=== PATIENT | female | born 1940 | race Caucasian/White ===

== ENCOUNTER 2018-12-01 08:28 | Inpatient (IN) | payer MEDICARE ==
[2018-12-01] MEDS ORDERED: Rocephin 1000 MG INJ IM STA (08:37)
[2018-12-01] MEDS ORDERED: Sodium Chloride 0.9% 1000 ML 1,000 ML IV SCH (08:45)
[2018-12-01] MEDS ORDERED: MORPHINE SULFATE 2 MG INJ IV ONE (08:49)
[2018-12-01] MEDS ORDERED: MORPHINE SULFATE 2 MG INJ ONE (08:56)
[2018-12-01 09:02] LABS: BASOPHIL % 0.1 % (0.0-0.4); Basophil (Absolute #) 0.01 (0-0.4); Eosinophil % 0.1 % (0.00-5.0); Eosinophil (Absolute #) 0.01 (0-0.5); Granulocyte Absolute (ANC) 6.63 (1.4-6.9); Granulocytes % 71.3 % (36.0-66.0); Hemoglobin 13.5 gm/dl (12.0-16.0); Lymphocyte (Absolute #) 1.25 (1.0-4.6); Lymphocytes % 13.5 % (24.0-44.0); Mean Cell Volume 94.2 fl (78-100); Mean Corpuscular Hemoglobin 30.3 pg (26-32); Mean Corpuscular Hgb Concent. 32.1 g/dl (32-36); Mean Platelet Volume 11.7 fl (6-9.5); Monocyte (Absolute #) 1.39 (0.0-1.3); Platelet Count 144 K/mm3 (150-450); Red Blood Count 4.46 M/mm3 (4.1-5.4); Red Cell Distribution Width 13.7 % (11.5-14.0); White Blood Count 9.3 K/mm3 (4.0-10.5)
--- NOTE | 2018-12-01 09:03 | ERPHSYRPT ---
- History of Present Illness Time Seen by Provider: 12/01/18 08:59 Source: patient, EMS Exam Limitations: no limitations Patient Subjective Stated Complaint: PT states "I started to have numbness in my toes a couple of days ago and now my legs are so swollen I can barely walk. [facility] went [facility] and they did not give me any medicine." Triage Nursing Assessment: Pt alert and oriented X 3, skin pwd. PT arrived via ambulance, scat 4, placed in room 4. Pt lower extremeties swollen, non pitting edema, right leg red, left leg no redness noted. Physician History: 78 years old female patient came to ER states "I started to have numbness in my toes a couple of days ago and now my legs are so swollen I can barely walk. [facility] and they did not give me any medicine." Lower Extremities Pain: leg: bilateral Modifying Factors: Improves With: nothing Associated Symptoms: none Allergies/Adverse Reactions: No Known Drug Allergies Allergy (Unverified 12/01/18 08:40) Home Medications: Aspirin [Aspirin EC] 81 mg PO DAILY 12/01/18 [History] Hx Tetanus, Diphtheria Vaccination/Date Given: No Hx Influenza Vaccination/Date Given: No Hx Pneumococcal Vaccination/Date Given: No Immunizations Up to Date: Yes - Review of Systems Constitutional: No Fever, No Chills Eyes: No Symptoms Ears, Nose, & Throat: No Symptoms Respiratory: No Cough, No Dyspnea Cardiac: No Chest Pain, No Edema, No Syncope Abdominal/Gastrointestinal: No Abdominal Pain, No Nausea, No Vomiting, No Diarrhea Genitourinary Symptoms: No Dysuria Musculoskeletal: Other (bilateral leg swelling up to knees), No Back Pain, No Neck Pain Skin: No Rash Neurological: No Dizziness, No Focal Weakness, No Sensory Changes Psychological: No Symptoms Endocrine: No Symptoms All Other Systems: Reviewed and Negative - Past Medical History Pertinent Past Medical History: Yes Neurological History: No Pertinent History ENT History: No Pertinent History Cardiac History: Other Respiratory History: No Pertinent History Endocrine Medical History: No Pertinent History Musculoskeletal History: No Pertinent History GI Medical History: No Pertinent History History: No Pertinent History Psycho-Social History: No Pertinent History Female Reproductive Disorders: No Pertinent History Other Medical History: mitral valve prolapse - Past Surgical History Past Surgical History: Yes Other Surgical History: tubal ligation. appendectomy - Social History Smoking Status: Never smoker Exposure to second hand smoke: Yes Drug Use: none Patient Lives Alone: No - Female History Hx Now: No - Nursing Vital Signs Nursing Vital Signs: Initial Vital Signs Temperature 98.0 F 12/01/18 08:29 Pulse Rate 84 12/01/18 08:29 Respiratory Rate 22 12/01/18 08:29 Blood Pressure 167/88 12/01/18 08:29 O2 Sat by Pulse Oximetry 98 12/01/18 08:29 Pain Scale Pain Intensity 6 - Physical Exam General Appearance: alert Eyes, Ears, Nose, Throat Exam: moist mucous membranes Neck Exam: non-tender, supple Cardiovascular/Respiratory Exam: chest non-tender, normal breath sounds, regular rate/rhythm, no respiratory distress Gastrointestinal/Abdominal Exam: non-tender, guarding Back Exam: normal inspection, No vertebral tenderness Legs Exam: bilateral leg: soft tissue tenderness, swelling Neuro/Tendon Exam: normal sensation, normal motor functions Mental Status Exam: alert, oriented x 3, cooperative Skin Exam: normal color, warm, dry SpO2 Interpretation: normal SpO2: 98 O2 Delivery: Room Air - Course Nursing assessment & vital signs reviewed: Yes - Radiology Ultrasound Exam Venous Lower Extremity Ultrasound: tele radiology report, Other (no DVT, right popliteal cyst) Ordered Tests: Active Orders 24 hr Category Date Time Status VENOUS BILATERAL EXTREMITY [US] Stat Exams 12/01/18 Ordered BLOOD CULTURE Stat Lab 12/01/18 08:50 Received BMP Stat Lab 12/01/18 08:30 Completed CBC W DIFF Stat Lab 12/01/18 08:30 Completed D-DIMER QUANTITATION Stat Lab 12/01/18 08:30 Completed Lactic Acid Stat Lab 12/01/18 08:37 Completed Medication Summary Generic Name Dose Route Start Last Admin Trade Name Freq PRN Reason Stop Dose Admin Sodium Chloride 1,000 mls @ 50 mls/hr 12/01/18 08:45 12/01/18 08:57 Sodium Chloride 0.9% 1000 Ml IV 12/31/18 08:44 50 mls/hr .Q20H NAKITA Administration Ceftriaxone Sodium/Dextrose 1 g in 50 mls @ 100 mls/hr 12/01/18 09:44 09:48 Rocephin 1 Gm-D5w 50 Ml Bag IV 12/01/18 10:13 100 ml/hr STAT ONE 100 mls/hr Administration Discontinued Medications Generic Name Dose Route Start Last Admin Trade Name Belinda PRN Reason Stop Dose Admin Ceftriaxone Sodium mg 12/01/18 08:37 Rocephin 1000 Mg Inj IM 12/01/18 08:38 STAT STA Ceftriaxone Sodium/Dextrose Confirm 12/01/18 09:46 Rocephin 1 Gm-D5w 50 Ml Bag Administered 12/01/18 09:47 Dose 1 g in 50 mls @ ud IV .STK-MED ONE Morphine Sulfate 2 mg 12/01/18 08:49 12/01/18 08:57 Morphine Sulfate 2 Mg Inj IV 12/01/18 08:50 2 mg STAT ONE Administration Morphine Sulfate Confirm 12/01/18 08:56 Morphine Sulfate 2 Mg Inj Administered 12/01/18 08:57 Dose 2 mg .ROUTE .STK-MED ONE Lab/Rad Data: Laboratory Result Diagrams 12/01/18 08:30 12/01/18 08:30 Laboratory Results 12/01/18 12/01/18 12/01/18 Range/Units 08:37 08:30 08:30 WBC (4.0-10.5) K/mm3 RBC (4.1-5.4) M/mm3 Hgb (12.0-16.0) gm/dl Hct (35-47) % MCV (78-100) fl MCH (26-32) pg MCHC (32-36) g/dl RDW (11.5-14.0) % Plt Count (150-450) K/mm3 MPV (6-9.5) fl Gran % (36.0-66.0) % Eos # (Auto) (0-0.5) Absolute Lymphs (auto) (1.0-4.6) Absolute Monos (auto) (0.0-1.3) Lymphocytes % (24.0-44.0) % Monocytes % (0.0-12.0) % Eosinophils % (0.00-5.0) % Basophils % (0.0-0.4) % Absolute Granulocytes (1.4-6.9) Basophils # (0-0.4) D-Dimer 3934 H* (215-500) ng/mL Sodium 139 (137-145) mmol/L Potassium 4.2 (3.5-5.1) mmol/L Chloride 100 (98-107) mmol/L Carbon Dioxide 29 (22-30) mmol/L Anion Gap 14.8 (5-15) MEQ/L BUN 21 H (7-17) mg/dL Creatinine 0.61 (0.52-1.04) mg/dL Estimated GFR > 60.0 ML/MIN Glucose 111 H (74-106) mg/dL Lactic Acid 1.6 (0.4-2.0) Calcium 9.8 (8.4-10.2) mg/dL Slides for Path Review 12/01/18 Range/Units 08:30 WBC 9.3 (4.0-10.5) K/mm3 RBC 4.46 (4.1-5.4) M/mm3 Hgb 13.5 (12.0-16.0) gm/dl Hct 42.0 (35-47) % MCV 94.2 (78-100) fl MCH 30.3 (26-32) pg MCHC 32.1 (32-36) g/dl RDW 13.7 (11.5-14.0) % Plt Count 144 L (150-450) K/mm3 MPV 11.7 H (6-9.5) fl Gran % 71.3 H (36.0-66.0) % Eos # (Auto) 0.01 (0-0.5) Absolute Lymphs (auto) 1.25 (1.0-4.6) Absolute Monos (auto) 1.39 H (0.0-1.3) Lymphocytes % 13.5 L (24.0-44.0) % Monocytes % 15.0 H (0.0-12.0) % Eosinophils % 0.1 (0.00-5.0) % Basophils % 0.1 (0.0-0.4) % Absolute Granulocytes 6.63 (1.4-6.9) Basophils # 0.01 (0-0.4) D-Dimer (215-500) ng/mL Sodium (137-145) mmol/L Potassium (3.5-5.1) mmol/L Chloride (98-107) mmol/L Carbon Dioxide (22-30) mmol/L Anion Gap (5-15) MEQ/L BUN (7-17) mg/dL Creatinine (0.52-1.04) mg/dL Estimated GFR ML/MIN Glucose (74-106) mg/dL Lactic Acid (0.4-2.0) Calcium (8.4-10.2) mg/dL Slides for Path Review YES - Progress Progress: unchanged, pain not gone completely Discussed with : Other (Dr Dye) Will see patient in: hospital (observation) Counseled pt/family regarding: lab results, diagnosis, need for follow-up, rad results - Departure Departure Disposition: Observation Clinical Impression: Bilateral leg edema Popliteal synovial cyst Qualifiers: Laterality: right Qualified Code(s): M71.21 - Synovial cyst of popliteal space [Anderson], right knee Condition: Stable Critical Care Time: Yes Critical Care Time(excluding separately billable procedures): 30-74 minutes Referrals: SANDY DYE DO [Primary Care Provider] -
[2018-12-01 09:13] LABS: ANION GAP 14.8 MEQ/L (5-15); BLOOD UREA NITROGEN 21 mg/dL (7-17); CHLORIDE 100 mmol/L (98-107); Calcium 9.8 mg/dL (8.4-10.2); Carbon Dioxide 29 mmol/L (22-30); Creatinine 1 0.61 mg/dL (0.52-1.04); Glucose 111 mg/dL (74-106); Potassium 4.2 mmol/L (3.5-5.1); SODIUM 139 mmol/L (137-145)
[2018-12-01 09:29] LABS: Slide Review 1 YES
[2018-12-01] MEDS ORDERED: ROCEPHIN 1 Gm-D5w 50 ml Bag** 1 G/50 ML IVPB IV ONE ×2 (09:44→09:46)
[2018-12-01] MEDS: MORPHINE SULFATE 2 MG INJ IV PRN (12:09)
[2018-12-01] MEDS: ENOXAPARIN SODIUM SQ SCH (12:17)
[2018-12-01] MEDS ORDERED: Norco 10/325 MG Tablet PO PRN (19:01)
[2018-12-01] MEDS: Sodium Chloride 0.9% 1000 ML 1,000 ML IV SCH (20:39)
--- NOTE | 2018-12-01 20:57 | XRAY ---
Indication: Bilateral calf pain. Two-dimensional sonogram and color Doppler imaging of the major venous vessels of the left and right leg was performed. Comparison: None No thrombus seen in the examined deep venous vessels of the left and right leg including greater saphenous vein. Veins demonstrate normal compressibility. Venous waveforms are normal with and without augmentation. Incidental 5.4 cm right knee Anderson's cyst. Impression: Left and right legs negative for DVT. Incidental right knee Anderson's cyst. Comment: Preliminary report was given.
--- NOTE | 2018-12-01 21:00 | XRAY ---
Indication: Elevated d-dimer. Comparison: August 27, 2018. Portable chest again demonstrated COPD. No focal infiltrate, consolidation, or large effusion. Heart is not enlarged for AP portable technique. Bony thorax intact again with mild osteopenia and degenerative changes. Impression: Stable COPD. No new/acute findings.
[2018-12-01 22:30] LABS: Appearance CLEAR (CLEAR); Bilirubin NEGATIVE (NEGATIVE); Blood MODERATE Ery/ul (0-5); Epithelial Cells RARE /HPF (FEW); Glucose NEGATIVE (NEGATIVE); Ketones NEGATIVE (NEGATIVE); Leukocyte Esterase TRACE (NEGATIVE); Mucus SLIGHT /HPF (NEGATIVE); Nitrite NEGATIVE (NEGATIVE); Protein,Urine Dip NEGATIVE (Negative); Urobilinogen 4 mg/dL (0-1)
[2018-12-02] MEDS: TYLENOL EXTRA STRENGTH 500 MG PO PRN (01:04)
[2018-12-02 05:45] LABS: BASOPHIL % 0.3 % (0.0-0.4); Basophil (Absolute #) 0.02 (0-0.4); Eosinophil % 0.6 % (0.00-5.0); Eosinophil (Absolute #) 0.04 (0-0.5); Granulocyte Absolute (ANC) 3.61 (1.4-6.9); Granulocytes % 54.2 % (36.0-66.0); Hematocrit 34.8 % (35-47); Hemoglobin 10.9 gm/dl (12.0-16.0); Lymphocyte (Absolute #) 1.62 (1.0-4.6); Lymphocytes % 24.4 % (24.0-44.0); Mean Cell Volume 95.6 fl (78-100); Mean Corpuscular Hemoglobin 29.9 pg (26-32); Mean Corpuscular Hgb Concent. 31.3 g/dl (32-36); Mean Platelet Volume 11.7 fl (6-9.5); Monocyte (Absolute #) 1.36 (0.0-1.3); Monocytes % 20.5 % (0.0-12.0); Platelet Count 124 K/mm3 (150-450); Red Blood Count 3.64 M/mm3 (4.1-5.4); Red Cell Distribution Width 13.4 % (11.5-14.0); White Blood Count 6.7 K/mm3 (4.0-10.5)
[2018-12-02 06:00] LABS: ALBUMIN 2.9 g/dL (3.5-5.0); ALKALINE PHOSPHATASE 66 U/L (38-126); ANION GAP 9.2 MEQ/L (5-15); BLOOD UREA NITROGEN 15 mg/dL (7-17); CHLORIDE 104 mmol/L (98-107); Calcium 8.7 mg/dL (8.4-10.2); Carbon Dioxide 30 mmol/L (22-30); Creatinine 1 0.65 mg/dL (0.52-1.04); Glucose 99 mg/dL (74-106); Potassium 4.5 mmol/L (3.5-5.1); SGOT/AST 20 U/L (14-36); SGPT/ALT 12 U/L (0-35); SODIUM 138 mmol/L (137-145); Total Protein 5.9 g/dL (6.3-8.2)
[2018-12-02] MEDS ORDERED: PRED-FORTE 1% OPHTHALMIC OP SCH (10:00)
[2018-12-02] MEDS: ECOTRIN 81 MG PO SCH (10:12)
[2018-12-02] MEDS: ENOXAPARIN SODIUM SQ SCH (10:12)
[2018-12-02] MEDS: ROCEPHIN 1 Gm-D5w 50 ml Bag** 1 G/50 ML IVPB IV SCH (10:13)
[2018-12-02] MEDS: PATIENT OWN MEDICATION OP SCH ×8 (10:13→22:48)
--- NOTE | 2018-12-02 11:28 | PCM.NOTE ---
Date and Time: 12/01/18 1500 Subjective Assessment: Patient was admitted through ER with lower extremity swelling bilaterally and right knee pain. Doppler was negative for DVT and CT neg for PE but D dimer is elevated: patient was started on Lovenox. She shows a Bakers cyst in the right knee. She has severe right knee and leg pain when moved 8-9/10 . IV Morphine has brought the pain down to tolerable. Patient does not have CHF. Etiology of this new onset edema is unknowm. Plan to treat for cellulitis and rule out occult abdominal/pelvic malignany. The patient lives with Family in her own home and helps care for her great grand children. She is fairly independent but has support from her children. Daughter is at her bedside and other family members have been visiting throughout the day. She is alert and oriented and comprehends our tratment plan. OBJECTIVE DATA Vital Signs: Vital Signs - 24 hr Temp Pulse Resp BP Pulse Ox 12/02/18 08:00 98.8 F 74 18 116/59 95 12/02/18 04:00 98.8 F 74 18 116/59 95 12/01/18 23:54 100.1 F 88 17 128/59 94 L 12/01/18 20:00 98.5 F 87 17 132/62 95 12/01/18 16:18 100.3 F 91 H 15 121/56 94 L Pain Assessment - Last Documented Pain Intensity 4 Pain Scale Used 0-10 Pain Scale Intake and Output: Intake & Output 11/29/18 11/30/18 12/01/18 12/02/18 11:59 11:59 11:59 11:59 Intake Total 1920 Output Total 925 Balance 995 Weight 57 kg Lab Results: Lab Results-Last 24 Hours 12/01/18 12/02/18 12/02/18 Range/Units 22:22 05:15 05:15 WBC 6.7 (4.0-10.5) K/mm3 RBC 3.64 L (4.1-5.4) M/mm3 Hgb 10.9 L (12.0-16.0) gm/dl Hct 34.8 L (35-47) % MCV 95.6 (78-100) fl MCH 29.9 (26-32) pg MCHC 31.3 L (32-36) g/dl RDW 13.4 (11.5-14.0) % Plt Count 124 L (150-450) K/mm3 MPV 11.7 H (6-9.5) fl Gran % 54.2 (36.0-66.0) % Eos # (Auto) 0.04 (0-0.5) Absolute Lymphs (auto) 1.62 (1.0-4.6) Absolute Monos (auto) 1.36 H (0.0-1.3) Lymphocytes % 24.4 (24.0-44.0) % Monocytes % 20.5 H (0.0-12.0) % Eosinophils % 0.6 (0.00-5.0) % Basophils % 0.3 (0.0-0.4) % Absolute Granulocytes 3.61 (1.4-6.9) Basophils # 0.02 (0-0.4) Sodium 138 (137-145) mmol/L Potassium 4.5 (3.5-5.1) mmol/L Chloride 104 (98-107) mmol/L Carbon Dioxide 30 (22-30) mmol/L Anion Gap 9.2 (5-15) MEQ/L BUN 15 (7-17) mg/dL Creatinine 0.65 (0.52-1.04) mg/dL Estimated GFR > 60.0 ML/MIN Glucose 99 (74-106) mg/dL Calcium 8.7 (8.4-10.2) mg/dL Total Bilirubin 0.60 (0.2-1.3) mg/dL AST 20 (14-36) U/L ALT 12 (0-35) U/L Alkaline Phosphatase 66 (38-126) U/L Serum Total Protein 5.9 L (6.3-8.2) g/dL Albumin 2.9 L (3.5-5.0) g/dL Urine Color YELLOW (YELLOW) Urine Appearance CLEAR (CLEAR) Urine pH 6.0 (5-6) Ur Specific [place] 1.020 (1.005-1.025) Urine Protein NEGATIVE (Negative) Urine Ketones NEGATIVE (NEGATIVE) Urine Blood MODERATE (0-5) Scott/ul Urine Nitrite NEGATIVE (NEGATIVE) Urine Bilirubin NEGATIVE (NEGATIVE) Urine Urobilinogen 4 (0-1) mg/dL Ur Leukocyte Esterase TRACE (NEGATIVE) Urine WBC (Auto) 11-15 (0-5) /HPF Urine RBC (Auto) 6-10 (0-2) /HPF U Epithel Cells (Auto) RARE (FEW) /HPF Urine Bacteria (Auto) NONE (NEGATIVE) /HPF Unidentified Crystals 2-5 (NEGATIVE) /HPF Urine Mucus (Auto) SLIGHT (NEGATIVE) /HPF Urine Culture Reflexed YES (NO) Urine Glucose NEGATIVE (NEGATIVE) mg/dL Radiology Exams: Radiology Procedures Category Date Time Status ABDOMEN AND PELVIS W&WO CONTRA [CT] Routine Exams 12/02/18 Ordered CHEST 1 VIEW (PORTABLE) Stat Exams 12/01/18 10:12 Completed VENOUS BILATERAL EXTREMITY [US] Stat Exams 12/01/18 11:02 Completed Assessment/Plan (1) Cellulitis of right lower leg Current Visit: Yes Status: Acute Assessment & Plan: IV Rocephin was started in ER and will be continued. Code(s): L03.115 - CELLULITIS OF RIGHT LOWER LIMB (2) Bilateral leg edema Current Visit: Yes Status: Acute Assessment & Plan: CT Abd/pelvis ordered for tomorrow Code(s): R60.0 - LOCALIZED EDEMA (3) Popliteal synovial cyst Current Visit: Yes Status: Acute Qualifiers: Laterality: right Qualified Code(s): M71.21 - Synovial cyst of popliteal space [Anderson], right knee Assessment & Plan: will need Ortho consult after acute problems resolved Code(s): M71.20 - SYNOVIAL CYST OF POPLITEAL SPACE [ANDERSON], UNSPECIFIED KNEE
--- NOTE | 2018-12-02 13:31 | PCM.HP ---
History of Present Illness - Chief Complaint Chief Complaint: pain and selling in lower legs,right knee pain Date: 12/02/18 History of Present Illness: is a 78 year old female who presented to the ER with pain and swelling in both lower legs and right knee pain. She denies any injury.She does not have Hx of heart dz.She denies SOB or lung dz. 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.) Ears, Nose, & Throat: No Symptoms Respiratory: No Symptoms Cardiac: No Symptoms Abdominal/Gastrointestinal: No Symptoms Genitourinary Symptoms: Incontinence (stress incontinence) Musculoskeletal: Joint Pain (right knee,NKI) Skin: Other (cut toenails too short and bleed a little prior to onset of cellulitis) Neurological: No Symptoms Psychological: No Symptoms Endocrine: No Symptoms Hematologic/Lymphatic: No Symptoms Immunological/Allergic: No Symptoms Medications & Allergies Home Medications: Home Medication List Aspirin [Aspirin EC] 81 mg PO DAILY 12/01/18 [History Confirmed 12/01/18] Hypromellose [Genteal] 2 drops OP TID 12/01/18 [History Confirmed 12/01/18] Prednisolone Acetate OPHTH [Pred-Forte 1% Ophthalmic] 1 drop OP DAILY 12/15 [History Confirmed 12/01/18] Sodium Chloride [[place]ortes-128] 2 drops OP QID 12/01/18 [History Confirmed 12/01/18] Allergies/Adverse Reactions: Allergies Allergy/AdvReac Type Severity Reaction Status Date / Time No Known Drug Allergies Allergy Unverified 12/01/18 08:40 - Past Medical History Past Medical History: Yes Neurological History: No Pertinent History Cardiac History: No Pertinent History Respiratory History: Pneumonia (age 16 years and July 2018) Endocrine Medical History: No Pertinent History Musculoskelatal History: No Pertinent History GI Medical History: No Pertinent History, Other (negative colonoscopy approx age 68) History: No Pertinent History, Other ( oldest aplastic anemia) Pyscho-Social History: No Pertinent History Reproductive Disorders: No Pertinent History Comment: 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 Dr. Prem Barriga in [place], [place] - Female History Are you now?: No - Past Surgical History Past Surgical History: Yes (cornea transplant) Neuro Surgical History: No Pertinent History Cardiac History: No Pertinent History Respiratory Surgery: No Pertinent History GI Surgical History: Appendectomy Genitourinary Surgical Hx: No Pertinent History Musculskeletal Surgical Hx: No Pertinent History Female Surgical History: Tubal Ligation Other Surgical History: tubal ligation. appendectomy - Social History Smoking Status: Never smoker Exposure to second hand smoke: No Alcohol: None Drug Use: none - Physical Exam Vital Signs: Vital Signs - 24 hr Temp Pulse Resp BP Pulse Ox 12/02/18 11:37 97.6 F 72 17 126/59 95 12/02/18 08:00 98.8 F 74 18 116/59 95 12/02/18 04:00 98.8 F 74 18 116/59 95 12/01/18 23:54 100.1 F 88 17 128/59 94 L 12/01/18 20:00 98.5 F 87 17 132/62 95 12/01/18 16:18 100.3 F 91 H 15 121/56 94 L General Appearance: moderate distress (due to right knee pain), other (patient is chilling ,releived with extra blanket) Neurologic Exam: alert, oriented x 3, cooperative, normal mood/affect, other ( no gross neuro defecits) Ears, Nose, Throat Exam: normal ENT inspection Neck Exam: normal inspection, other (no mass nontender) Respiratory Exam: normal breath sounds, lungs clear Cardiovascular Exam: regular rate/rhythm (no murmur) Gastrointestinal/Abdomen Exam: soft, normal bowel sounds (nontender no organomegally,low suprapubic area "patient feels is swollen " but noo palpable mass) Pelvic Exam: deferred Rectal Exam: deferred Back Exam: other (no CVA tenderness) Extremity Exam: swelling, tenderness (right posterior knee is swollen and tender popliteal fossa. right lower leg and foot generalized edema and redness and tender to touch or move.Left lower leg edema and redness is resolving and is minimally tender. Toenails are deformed some thickening and dried heme third toe along the nail cuticle (patient said she cut it too short last week)) Results - Labs Lab/Micro Results: Lab Results-Last 24 Hours 12/01/18 12/02/18 12/02/18 Range/Units 22:22 05:15 05:15 WBC 6.7 (4.0-10.5) K/mm3 RBC 3.64 L (4.1-5.4) M/mm3 Hgb 10.9 L (12.0-16.0) gm/dl Hct 34.8 L (35-47) % MCV 95.6 (78-100) fl MCH 29.9 (26-32) pg MCHC 31.3 L (32-36) g/dl RDW 13.4 (11.5-14.0) % Plt Count 124 L (150-450) K/mm3 MPV 11.7 H (6-9.5) fl Gran % 54.2 (36.0-66.0) % Eos # (Auto) 0.04 (0-0.5) Absolute Lymphs (auto) 1.62 (1.0-4.6) Absolute Monos (auto) 1.36 H (0.0-1.3) Lymphocytes % 24.4 (24.0-44.0) % Monocytes % 20.5 H (0.0-12.0) % Eosinophils % 0.6 (0.00-5.0) % Basophils % 0.3 (0.0-0.4) % Absolute Granulocytes 3.61 (1.4-6.9) Basophils # 0.02 (0-0.4) Sodium 138 (137-145) mmol/L Potassium 4.5 (3.5-5.1) mmol/L Chloride 104 (98-107) mmol/L Carbon Dioxide 30 (22-30) mmol/L Anion Gap 9.2 (5-15) MEQ/L BUN 15 (7-17) mg/dL Creatinine 0.65 (0.52-1.04) mg/dL Estimated GFR > 60.0 ML/MIN Glucose 99 (74-106) mg/dL Calcium 8.7 (8.4-10.2) mg/dL Total Bilirubin 0.60 (0.2-1.3) mg/dL AST 20 (14-36) U/L ALT 12 (0-35) U/L Alkaline Phosphatase 66 (38-126) U/L Serum Total Protein 5.9 L (6.3-8.2) g/dL Albumin 2.9 L (3.5-5.0) g/dL Urine Color YELLOW (YELLOW) Urine Appearance CLEAR (CLEAR) Urine pH 6.0 (5-6) Ur Specific [place] 1.020 (1.005-1.025) Urine Protein NEGATIVE (Negative) Urine Ketones NEGATIVE (NEGATIVE) Urine Blood MODERATE (0-5) Scott/ul Urine Nitrite NEGATIVE (NEGATIVE) Urine Bilirubin NEGATIVE (NEGATIVE) Urine Urobilinogen 4 (0-1) mg/dL Ur Leukocyte Esterase TRACE (NEGATIVE) Urine WBC (Auto) 11-15 (0-5) /HPF Urine RBC (Auto) 6-10 (0-2) /HPF U Epithel Cells (Auto) RARE (FEW) /HPF Urine Bacteria (Auto) NONE (NEGATIVE) /HPF Unidentified Crystals 2-5 (NEGATIVE) /HPF Urine Mucus (Auto) SLIGHT (NEGATIVE) /HPF Urine Culture Reflexed YES (NO) Urine Glucose NEGATIVE (NEGATIVE) mg/dL Microbiology 12/01/18 22:22 Urine Culture - Preliminary Urine, Void NO GROWTH TO DATE - Radiology Impressions Radiology Exams & Impressions: Radiology Procedures Category Date Time Status ABDOMEN AND PELVIS W&WO CONTRA [CT] Routine Exams 12/02/18 Ordered CHEST 1 VIEW (PORTABLE) Stat Exams 12/01/18 10:12 Completed VENOUS BILATERAL EXTREMITY [US] Stat Exams 12/01/18 11:02 Completed Assessment/Plan (1) Cellulitis of right lower leg Current Visit: Yes Status: Acute Code(s): L03.115 - CELLULITIS OF RIGHT LOWER LIMB (2) Bilateral leg edema Current Visit: Yes Status: Acute Code(s): R60.0 - LOCALIZED EDEMA (3) Popliteal synovial cyst Current Visit: Yes Status: Acute Qualifiers: Laterality: right Qualified Code(s): M71.21 - Synovial cyst of popliteal space [Anderson], right knee Code(s): M71.20 - SYNOVIAL CYST OF POPLITEAL SPACE [ANDERSON], UNSPECIFIED KNEE (4) History of corneal transplant Current Visit: Yes Status: Acute Code(s): Z94.7 - CORNEAL TRANSPLANT STATUS
[2018-12-02] MEDS: MORPHINE SULFATE 2 MG INJ IV PRN (14:46)
[2018-12-03] MEDS: Sodium Chloride 0.9% 1000 ML 1,000 ML IV SCH ×2 (06:19→07:48)
--- NOTE | 2018-12-03 08:53 | XRAY ---
Indication: Groin pain with lymph nodes. Multiple contiguous axial images obtained through the abdomen and pelvis prior to and following 80 cc Isovue 370 contrast only. Gastrografin contrast also used. Comparison: None Lung bases are clear. Heart is not enlarged. Noncontrasted images demonstrates hepatic/splenic calcified granulomas. No pathologic visceral calcifications/calculi. Noncontrasted stomach and bowel loops appear nonobstructed. Minimal sigmoid diverticulosis. No free fluid or free air. Postcontrast images demonstrates normal visceral enhancement and renal excretion. Remaining liver, gallbladder, pancreas, spleen, adrenal glands, kidneys, ureters, bladder, and uterus appear unremarkable. Mild scattered vascular calcifications. No AAA or pathologic retroperitoneal lymphadenopathy. Osseous structures demonstrates mild/moderate multilevel degenerative spondylosis and mild dextroscoliosis centered at L3. Small bilateral inguinal lymph nodes, none pathologically enlarged. No ventral or inguinal hernias. Impression: 1. Evidence for old granulomatous disease. No pathologic visceral calcifications/calculi. 2. Sigmoid diverticulosis without diverticulitis. 3. Remaining CT abdomen/pelvis with and without contrast is negative. CT DI 14.87
[2018-12-03] MEDS: ROCEPHIN 1 Gm-D5w 50 ml Bag** 1 G/50 ML IVPB IV SCH (09:34)
[2018-12-03] MEDS: ENOXAPARIN SODIUM SQ SCH (09:34)
[2018-12-03] MEDS: PATIENT OWN MEDICATION OP SCH ×8 (09:35→22:10)
[2018-12-03] MEDS: ECOTRIN 81 MG PO SCH (09:35)
--- NOTE | 2018-12-03 12:58 | PCM.NOTE ---
Date and Time: 12/03/18 1256 Subjective Assessment: Patient had CTabd and pelvis late yesterday and it was unremarkable/negative .Right leg pain from cellulitis is improving but pain increases with weight bearing. PT walked patient with walker this morning,dependent on the walker probably due mostly to pain.Temp was 99.1this morning,down from 12/01/18 Tmax.= 100.1. New c/o pain right foot at the base of the great toe . Appetite is ok , slept well, no constipation or diarrhea. Labs ordered including uric acid.Exam today edema and redness continues to improve. Continue IV Rocephin and PT. OBJECTIVE DATA Vital Signs: Vital Signs - 24 hr Temp Pulse Resp BP Pulse Ox 12/03/18 12:00 98.2 F 74 18 144/61 99 12/03/18 07:52 98.1 F 77 18 114/56 95 12/03/18 04:00 98.6 F 81 16 127/60 97 12/03/18 00:00 99.1 F 83 16 108/52 96 12/02/18 20:00 98.1 F 76 20 127/59 99 12/02/18 14:56 98.2 F 72 17 151/67 97 Pain Assessment - Last Documented Pain Intensity 5 Pain Scale Used 0-10 Pain Scale Intake and Output: Intake & Output 12/01/18 12/02/18 12/03/18 12/04/18 11:59 11:59 11:59 11:59 Intake Total 1920 1641 Output Total 925 700 Balance 995 941 Weight 57 kg Radiology Exams: Radiology Procedures Category Date Time Status ABDOMEN AND PELVIS W&WO CONTRA [CT] Routine Exams 12/02/18 21:01 Completed Assessment/Plan (1) Cellulitis of right lower leg Current Visit: Yes Status: Acute Code(s): L03.115 - CELLULITIS OF RIGHT LOWER LIMB (2) Bilateral leg edema Current Visit: Yes Status: Acute Assessment & Plan: improved but still painfull right lower ext Code(s): R60.0 - LOCALIZED EDEMA (3) Popliteal synovial cyst Current Visit: Yes Status: Acute Qualifiers: Laterality: right Qualified Code(s): M71.21 - Synovial cyst of popliteal space [Anderson], right knee Code(s): M71.20 - SYNOVIAL CYST OF POPLITEAL SPACE [ANDERSON], UNSPECIFIED KNEE (4) History of corneal transplant Current Visit: Yes Status: Acute Code(s): Z94.7 - CORNEAL TRANSPLANT STATUS (5) Great toe pain Current Visit: Yes Status: Acute Assessment & Plan: right side only,test uric acid Code(s): M79.676 - PAIN IN UNSPECIFIED TOE(S)
[2018-12-03 16:26] LABS: BASOPHIL % 0.3 % (0.0-0.4); Basophil (Absolute #) 0.02 (0-0.4); Eosinophil (Absolute #) 0.12 (0-0.5); Granulocyte Absolute (ANC) 3.88 (1.4-6.9); Granulocytes % 63.7 % (36.0-66.0); Hematocrit 35.1 % (35-47); Hemoglobin 11.3 gm/dl (12.0-16.0); Lymphocytes % 19.7 % (24.0-44.0); Mean Cell Volume 94.6 fl (78-100); Mean Corpuscular Hgb Concent. 32.2 g/dl (32-36); Mean Platelet Volume 11.4 fl (6-9.5); Monocyte (Absolute #) 0.87 (0.0-1.3); Monocytes % 14.3 % (0.0-12.0); Platelet Count 134 K/mm3 (150-450); Red Blood Count 3.71 M/mm3 (4.1-5.4); Red Cell Distribution Width 13.2 % (11.5-14.0); White Blood Count 6.1 K/mm3 (4.0-10.5)
[2018-12-03 16:27] LABS: Mean Corpuscular Hemoglobin 30.4 pg (26-32)
[2018-12-03 16:36] LABS: ALBUMIN 3.1 g/dL (3.5-5.0); ALKALINE PHOSPHATASE 71 U/L (38-126); ANION GAP 11.7 MEQ/L (5-15); BLOOD UREA NITROGEN 14 mg/dL (7-17); CHLORIDE 102 mmol/L (98-107); Calcium 8.7 mg/dL (8.4-10.2); Carbon Dioxide 27 mmol/L (22-30); Creatinine 1 0.57 mg/dL (0.52-1.04); Glucose 101 mg/dL (74-106); Potassium 3.7 mmol/L (3.5-5.1); SGOT/AST 20 U/L (14-36); SGPT/ALT 14 U/L (0-35); SODIUM 137 mmol/L (137-145); Total Protein 6.3 g/dL (6.3-8.2)
[2018-12-03] MEDS: TYLENOL EXTRA STRENGTH 500 MG PO PRN (22:07)
[2018-12-04] MEDS: PATIENT OWN MEDICATION OP SCH ×8 (09:46→22:18)
[2018-12-04] MEDS: ECOTRIN 81 MG PO SCH (09:50)
[2018-12-04] MEDS: ENOXAPARIN SODIUM SQ SCH (09:51)
[2018-12-04] MEDS: ROCEPHIN 1 Gm-D5w 50 ml Bag** 1 G/50 ML IVPB IV SCH (09:53)
--- NOTE | 2018-12-04 11:37 | PCM.NOTE ---
Date and Time: 12/04/18 1107 Subjective Assessment: Patient has been up to the bathroom using her walker this morning without any assistance and reports no problem. PT is with patient now. She is strong enough to use walker without wheels. Daughter has a light weight walker for patient to use at home.Daughter is concerned that patient stays anxious and possibly depressed due to loss of a grandson and her in the same year,4 years ago. She is Patient states her right knee and foot pain is alot better this morning. Right LE edema and redness has greatly improved,involves foot to ankle and has cleared from the calf area .Uric acid was not elevated.no fever this morning Tmax 99.2 approx 8pm yesterday. Continue IV Rocephin.Discharge home soon.Spoke with son who has to clear boxes (states she has been hoarding)to be able to use the walker at home.Continue IV Rocephin Start Prozac and Xanax only if patient becomes agitated. OBJECTIVE DATA Vital Signs: Vital Signs - 24 hr Temp Pulse Resp BP Pulse Ox 12/04/18 07:37 97.8 F 72 20 136/63 96 12/04/18 04:20 98.5 F 78 16 125/63 96 12/03/18 23:47 98.8 F 75 16 128/62 95 12/03/18 19:56 99.2 F 74 20 128/60 98 12/03/18 16:00 98.3 F 73 18 134/64 98 12/03/18 12:00 98.2 F 74 18 144/61 99 Pain Assessment - Last Documented Pain Intensity 0 Pain Scale Used 0-10 Pain Scale Intake and Output: Intake & Output 12/01/18 12/02/18 12/03/18 12/04/18 11:59 11:59 11:59 11:59 Intake Total 1920 1641 1660 Output Total 925 700 Balance 682 101 5215 Weight 57 kg Lab Results: Lab Results-Last 24 Hours 12/03/18 12/03/18 12/03/18 Range/Units 16:24 16:24 16:24 WBC 6.1 (4.0-10.5) K/mm3 RBC 3.71 L (4.1-5.4) M/mm3 Hgb 11.3 L (12.0-16.0) gm/dl Hct 35.1 (35-47) % MCV 94.6 (78-100) fl MCH 30.4 (26-32) pg MCHC 32.2 (32-36) g/dl RDW 13.2 (11.5-14.0) % Plt Count 134 L (150-450) K/mm3 MPV 11.4 H (6-9.5) fl Gran % 63.7 (36.0-66.0) % Eos # (Auto) 0.12 (0-0.5) Absolute Lymphs (auto) 1.20 (1.0-4.6) Absolute Monos (auto) 0.87 (0.0-1.3) Lymphocytes % 19.7 L (24.0-44.0) % Monocytes % 14.3 H (0.0-12.0) % Eosinophils % 2.0 (0.00-5.0) % Basophils % 0.3 (0.0-0.4) % Absolute Granulocytes 3.88 (1.4-6.9) Basophils # 0.02 (0-0.4) Sodium 137 (137-145) mmol/L Potassium 3.7 (3.5-5.1) mmol/L Chloride 102 (98-107) mmol/L Carbon Dioxide 27 (22-30) mmol/L Anion Gap 11.7 (5-15) MEQ/L BUN 14 (7-17) mg/dL Creatinine 0.57 (0.52-1.04) mg/dL Estimated GFR > 60.0 ML/MIN Glucose 101 (74-106) mg/dL Uric Acid 1.8 L (2.6-6.0) mg/dL Calcium 8.7 (8.4-10.2) mg/dL Total Bilirubin 0.20 (0.2-1.3) mg/dL AST 20 (14-36) U/L ALT 14 (0-35) U/L Alkaline Phosphatase 71 (38-126) U/L Serum Total Protein 6.3 (6.3-8.2) g/dL Albumin 3.1 L (3.5-5.0) g/dL Radiology Exams: Radiology Procedures Category Date Time Status ABDOMEN AND PELVIS W&WO CONTRA [CT] Routine Exams 12/02/18 21:01 Completed Assessment/Plan (1) Cellulitis of right lower leg Current Visit: Yes Status: Acute Assessment & Plan: continues to improve ,fever last PM low grade,would benefit from 1 more dose IV Rocephin. Code(s): L03.115 - CELLULITIS OF RIGHT LOWER LIMB (2) Bilateral leg edema Current Visit: Yes Status: Acute Assessment & Plan: from cellulitis and continues to improve Code(s): R60.0 - LOCALIZED EDEMA (3) Popliteal synovial cyst Current Visit: Yes Status: Acute Qualifiers: Laterality: right Qualified Code(s): M71.21 - Synovial cyst of popliteal space [Anderson], right knee Assessment & Plan: outpatient ORTHO appt Code(s): M71.20 - SYNOVIAL CYST OF POPLITEAL SPACE [ANDERSON], UNSPECIFIED KNEE (4) History of corneal transplant Current Visit: Yes Status: Acute Code(s): Z94.7 - CORNEAL TRANSPLANT STATUS (5) Great toe pain Current Visit: Yes Status: Acute Code(s): M79.676 - PAIN IN UNSPECIFIED TOE( S) (6) Anxiety with depression Current Visit: Yes Status: Acute Assessment & Plan: subtle,see note. Code(s): F41.8 - OTHER SPECIFIED ANXIETY DISORDERS
[2018-12-04] MEDS ORDERED: xanAX 0.25 MG PO PRN (11:45)
[2018-12-04] MEDS: PROZAC 10 MG PO SCH (13:40)
[2018-12-05 08:41] VITALS: BP 135/64; PULSE 64; O2SAT 96
[2018-12-05] MEDS: ECOTRIN 81 MG PO SCH (09:16)
[2018-12-05] MEDS: ROCEPHIN 1 Gm-D5w 50 ml Bag** 1 G/50 ML IVPB IV SCH (09:16)
[2018-12-05] MEDS: ENOXAPARIN SODIUM SQ SCH (09:16)
[2018-12-05] MEDS: PATIENT OWN MEDICATION OP SCH ×4 (09:17→12:33)
[2018-12-05] MEDS: PROZAC 10 MG PO SCH (09:20)
[2018-12-05] MEDS ORDERED: Adacel Vial IM ONE (11:00)
--- NOTE | 2018-12-05 11:10 | PCM.DCORD ---
- Discharge Discharge Date: 12/05/18 (Care Coordination home visit. Referal to ORTHO for right knee bakers cyst) Disposition: Home, Self-Care Condition: Stable Prescriptions: New Amox Tr/Potass Clav. 500 mg [Augmentin 500-125 Tablet] 500 mg PO BID # 14 tablet Saccharomyces Boulardii [Florastor] 250 mg PO BIDWMEALS #20 capsule Fluoxetine HCl 10 mg [Prozac 10 mg] 10 mg PO DAILY #30 tablet Acetaminophen 500 mg [Tylenol Extra Strength 500 mg] 500 - 1,000 mg PO Q4H PRN PRN tablet PRN Reason: Mild To Moderate Pain Continue Aspirin [Aspirin EC] 81 mg PO DAILY Sodium Chloride [Cortes-128] 2 drops OP QID Prednisolone Acetate OPHTH [Pred-Forte 1% Ophthalmic] 1 drop OP DAILY Hypromellose [Genteal] 2 drops OP TID Instructions: Swelling, Cellulitis (Skin Infection), Adult (DC) Additional Instructions: O NURSING STAFF WILL CONTACT YOU ON DISCHARGE FOR A HOME VISIT. Follow up with: SANDY ROWLAND DO [Primary Care Provider] - 12/10/18 11:20 am
== END 2018-12-05 13:40 | disposition home or self-care (01) | DRG 603 ==
LOC: ED 08:28 → MED SURG 10:40 → OBSVTOIN 12-02 11:21 → INTOOBSV 12-02 21:21
PROVIDERS: ADMIT Family Medicine; ATTEND Family Medicine
DX: L03.115 Cellulitis of right lower limb (principal); M25.561 Pain in right knee; M71.21 Synovial cyst of popliteal space [Baker], right knee; R60.0 Localized edema; M79.674 Pain in right toe(s); R79.1 Abnormal coagulation profile; Z79.899 Other long term (current) drug therapy; Z94.7 Corneal transplant status; F41.8 Other specified anxiety disorders; Z79.82 Long term (current) use of aspirin
CPT/HCPCS: 36415; 74178; 80048; 80053; 81001; 83605; 84550; 85025; 85379; 87040; 87086; 93041; 93970; 96360; 96365; 96374; 96375; 97110; 97161; 99291; G0378; 36000; 71045; 90715; 99285; A6457; J0696; J1650; J2270; A9270-GY

== ENCOUNTER 2020-11-23 15:02 | Observation (INO) | payer MEDICARE ==
[2020-11-23 16:08] LABS: INFLUENZA A NEGATIVE (NEGATIVE); INFLUENZA B NEGATIVE (NEGATIVE); RESPIRATORY SYNCTIAL VIRUS NEGATIVE (Negative)
[2020-11-23 18:51] LABS: Hematocrit 40.3 % (35-47); Hemoglobin 12.7 gm/dl (12.0-16.0); Mean Cell Volume 94.8 fl (78-100); Mean Corpuscular Hemoglobin 29.9 pg (26-32); Mean Corpuscular Hgb Concent. 31.5 g/dl (32-36); Mean Platelet Volume 11.6 fl (7.5-11.0); Platelet Count 138 K/mm3 (150-450); Red Blood Count 4.25 M/mm3 (4.1-5.4); Red Cell Distribution Width 13.1 % (11.5-14.0); White Blood Count 5.2 K/mm3 (4.0-10.5)
[2020-11-23 20:05] LABS: ALBUMIN 4.1 g/dL (3.5-5.0); ALKALINE PHOSPHATASE 100 U/L (38-126); ANION GAP 10.9 MEQ/L (5-15); BLOOD UREA NITROGEN 20 mg/dL (7-17); CHLORIDE 102 mmol/L (98-107); Calcium 9.7 mg/dL (8.4-10.2); Carbon Dioxide 28 mmol/L (22-30); Creatinine 1 0.86 mg/dL (0.52-1.04); EST GLOMERULAR FILTRATION RATE > 60.0 ML/MIN; Glucose 160 mg/dL (74-106); Potassium 4.2 mmol/L (3.5-5.1); SGOT/AST 28 U/L (14-36); SGPT/ALT 17 U/L (0-35); SODIUM 136 mmol/L (137-145); Total Protein 7.3 g/dL (6.3-8.2)
[2020-11-23] MEDS: PATIENT OWN MEDICATION OP SCH (20:51)
[2020-11-23] MEDS: Artificial Tears 15 ML OP SCH (20:56)
[2020-11-23] MEDS: Sodium Chloride 0.9% 1000 ML 1,000 ML IV SCH (20:57)
[2020-11-23 21:15] LABS: Appearance SLIGHTLY CLOUDY (CLEAR); Bacteria RARE /HPF (NEGATIVE); Bilirubin NEGATIVE (NEGATIVE); Blood SMALL Ery/ul (0-5); Glucose NEGATIVE (NEGATIVE); Ketones NEGATIVE (NEGATIVE); Leukocyte Esterase LARGE (NEGATIVE); Mucus SLIGHT /HPF (NEGATIVE); Nitrite NEGATIVE (NEGATIVE); Protein,Urine Dip NEGATIVE (Negative); Specific Gravity 1.019 (1.005-1.025); Urobilinogen NEGATIVE mg/dL (0-1)
[2020-11-23] MEDS ORDERED: [UNRECOGNIZED DRUG - OTHER] OP SCH (22:00)
[2020-11-23] MEDS ORDERED: HYPROMELLOSE OP SCH (22:00)
[2020-11-23] MEDS ORDERED: FLUOROURACIL TP SCH (22:00)
[2020-11-23] MEDS ORDERED: SODIUM CHLORIDE OP SCH (22:00)
[2020-11-23] MEDS ORDERED: PATIENT OWN MEDICATION TOP SCH (22:00)
[2020-11-23 23:05] LABS: Slide Review YES
[2020-11-24] MEDS: PATIENT OWN MEDICATION OP SCH ×4 (09:21→13:26)
[2020-11-24] MEDS ORDERED: ECOTRIN 81 MG PO SCH (10:00)
[2020-11-24] MEDS ORDERED: Vitamin B-12 500 MCG PO SCH ×2 (10:00)
[2020-11-24] MEDS ORDERED: PLAVIX 75 MG Tablet PO SCH (10:00)
[2020-11-24] MEDS ORDERED: Ecotrin 325 MG PO SCH (10:00)
[2020-11-24] MEDS: Artificial Tears 15 ML OP SCH (10:08)
[2020-11-24] MEDS: Sodium Chloride 0.9% 1000 ML 1,000 ML IV SCH (11:14)
--- NOTE | 2020-11-24 13:25 | XRAY ---
Exam: Bilateral duplex Doppler carotid ultrasound exam from 11/24/2020. Comparison: None. Indication: 80-year-old female with TIA. Findings: Chester scale images, color blood flow images, and Doppler tracings were obtained of both carotid arteries. On the right side, there is minimal intimal thickening within the right common carotid artery and about the carotid bulb. Minimal calcific plaque is seen within the anterior aspect of the proximal right internal carotid artery. Peak systolic flow velocities in centimeters per second measure 147 within the common carotid artery, 137 within the external carotid artery, and 62 and 157 within the proximal and distal internal carotid artery, respectively. Spectral broadening of the Doppler waveform is seen within the distal right internal carotid artery. The peak systolic velocity ratio between the ICA and CCA is 1.1 which is not elevated. Peak systolic flow velocity within the right vertebral artery measures 124 cm/s. The Doppler waveform appears both above and below the baseline. Color images reveal a red color in the right common carotid artery indicating antegrade flow. However, significant blue color is seen within the right vertebral artery on the same image. This may suggest some reversal of blood flow within the right vertebral artery. Consider the possibility of right brachiocephalic or proximal right subclavian artery stenosis/obstruction proximal to the origin of the right vertebral artery. On the left side, there is mild intimal thickening and tortuosity of the common carotid artery, carotid bulb, and internal carotid artery. Significant calcified plaque is not seen. Peak systolic flow velocities in centimeters per second measure 118 within the left common carotid artery, 116 within the external carotid artery, and 144 and 162 within the proximal and distal internal carotid artery, respectively. The left internal carotid artery is noted to be tortuous in course. Peak systolic flow velocity ratio between the left ICA and CCA is 1.4 which is not significantly elevated. The left vertebral artery reveals antegrade flow (same direction as the left common carotid artery) with a peak systolic flow velocity of 98 cm/s. Impression: 1. I note that the common carotid artery peak systolic flow velocities are mildly elevated bilaterally with the right side measuring 147 cm/s and the left side measuring 118 cm/s. Correlate clinically regarding hypertension. 2. Although the peak systolic flow velocity ratios appear unremarkable bilaterally, peak systolic flow velocities within the internal carotid arteries are at least mildly elevated with the distal right internal carotid artery measuring 157 cm/s and the distal left internal carotid artery measuring 162 cm/s. This could be due to hypertension and tortuosity of the vessels in this projection. I did not see significant calcific plaque within the internal carotid arteries. Nor did I see significant narrowing/stenosis on the color blood flow images within the internal carotid arteries. 3. There is a suggestion of some reversal of blood flow within the right vertebral artery. See above discussion.
[2020-11-24 16:54] VITALS: BP 149/67; PULSE 57; O2SAT 96
--- NOTE | 2020-11-24 17:32 | XRAY ---
Exam: MRI of the brain without IV contrast from 11/24/2020. Comparison: None. Indication: TIA. Technique: Routine sagittal, coronal, and axial MRI sequences without IV contrast were obtained through the brain, per protocol. Findings: The ventricles appear of normal size without hydrocephalus. No focal mass effect or midline shift is seen. No acute intracranial bleed or abnormal extra-axial fluid collection is seen. There are moderate scattered bilateral periventricular and subcortical foci of increased signal on the T2 weighted FLAIR images which likely represents chronic small vessel ischemic disease. The diffusion weighted images reveal no areas of restricted diffusion to suggest acute or subacute infarct. No other abnormal high signal or low signal parenchymal densities are seen. There is mild prominence of the cortical sulci consistent with the patient's age. The seventh and eighth cranial nerve root complexes appear unremarkable bilaterally. The visualized paranasal sinuses appear unremarkable. No significant abnormality is seen within the mastoids. The orbits appear grossly unremarkable. Impression: 1. Mild generalized cerebral volume loss consistent with the patient's age. I also note findings consistent with chronic small vessel ischemic disease within the periventricular and subcortical white matter. A discrete focal infarct is not identified on the diffusion weighted images. 2. No other significant abnormality is detected.
--- NOTE | 2020-11-26 09:42 | ECHO ---
Transthoracic echocardiographic examination and color Doppler was done on 11/24/2020. INDICATION: Transient ischemic attack. IMPRESSION: 1) NO DEFINITE REGIONAL WALL MOTION ABNORMALITY. ESTIMATED GLOBAL LEFT VENTRICULAR EJECTION FRACTION OF AROUND 55 TO 60%. 2) TRACE MITRAL REGURGITATION. 3) MODERATE TRICUSPID REGURGITATION. RIGHT VENTRICULAR SYSTOLIC PRESSURE OF 44 MM OF MERCURY. 4) MILD PULMONIC INSUFFICIENCY. 5) LEFT VENTRICULAR HYPERTROPHY. 6) LEFT VENTRICULAR DIASTOLIC DYSFUNCTION. The left ventricle is visualized and demonstrated adequate motion of all the segments. Estimated global left ventricular ejection fraction of around 55 to 60%. There is mild left ventricular hypertrophy. The mitral valve is seen and this opens adequately. There is trace mitral regurgitation. Left atrium is in the upper limits of normal. The tissue Doppler study of the lateral mitral annulus is suggestive of left ventricular diastolic dysfunction. The aortic valve is sclerotic but opens adequately. There is no significant gradient across the left ventricular outflow tract. The right side chambers are mildly dilated. There is moderate tricuspid regurgitation with the right ventricular systolic pressure of 44 mm of Mercury suggestive of mild pulmonary hypertension. There is also mild pulmonic insufficiency.
--- NOTE | 2020-12-17 20:03 | PCM.SSS ---
History of Present Illness - Chief Complaint Chief Complaint: tia History of Present Illness: is a 80 year old female. Presented with alteration of normal function - Review of Systems Constitutional: No Fever, No Chills Eyes: No Symptoms Ears, Nose, & Throat: No Symptoms Respiratory: No Cough, No Short Of Breath Cardiac: No Chest Pain, No Edema, No Syncope Abdominal/Gastrointestinal: No Abdominal Pain, No Nausea, No Vomiting, No Diarrhea Genitourinary Symptoms: No Dysuria Musculoskeletal: No Back Pain, No Neck Pain Skin: No Rash Neurological: No Dizziness, No Focal Weakness, No Sensory Changes Psychological: No Symptoms Endocrine: No Symptoms Hematologic/Lymphatic: No Symptoms Immunological/Allergic: No Symptoms Medications & Allergies Home Medications: Home Medication List Hypromellose [Genteal] 1 drops OP TID 12/01/18 [History Confirmed 11/23/20] Sodium Chloride [Cortes-128] 2 drops OP QID 12/01/18 [History Confirmed 11/23/20] Acetaminophen 500 mg [Tylenol Extra Strength 500 mg] 500 - 1,000 mg PO Q4H PRN PRN tablet 12/05/18 [Rx Confirmed 11/23/20] Mecobalamin [B12 Active] 2,500 mcg PO DAILY 11/23/20 [History Confirmed 11/23/20] fluorouraciL [Fluorouracil] 40 gm TP HS 11/23/20 [History Confirmed 11/23/20] Amoxicillin 875 mg PO BID #20 tablet 11/24/20 [Rx] Aspirin EC 325 mg [Ecotrin 325 MG] 325 mg PO DAILY #30 tablet.ec 11/24/20 [Rx] Clopidogrel Bisulfate 75 mg [PLAVIX 75 MG Tablet] 75 mg PO DAILY #30 tablet 11/24/20 [Rx] Allergies/Adverse Reactions: Allergies Allergy/AdvReac Type Severity Reaction Status Date / Time No Known Drug Allergies Allergy Verified 11/23/20 17:57 - Past Medical History Past Medical History: Yes Neurological History: No Pertinent History ENT History: Other Cardiac History: No Pertinent History Respiratory History: Pneumonia Endocrine Medical History: No Pertinent History Musculoskelatal History: No Pertinent History GI Medical History: No Pertinent History, Other History: No Pertinent History, Other Pyscho-Social History: No Pertinent History Reproductive Disorders: No Pertinent History Comment: 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 Dr. Prem Barriga in [place], [place] - Female History Are you now?: No - Past Surgical History Past Surgical History: Yes (cornea transplant) Neuro Surgical History: No Pertinent History Cardiac History: No Pertinent History Respiratory Surgery: No Pertinent History GI Surgical History: Appendectomy Genitourinary Surgical Hx: No Pertinent History Musculskeletal Surgical Hx: No Pertinent History Female Surgical History: Tubal Ligation Other Surgical History: tubal ligation. appendectomy. skin cancers removed right leg - Social History Smoking Status: Never smoker Exposure to second hand smoke: No Alcohol: None Drug Use: none - Physical Exam General Appearance: no apparent distress, alert Neurologic Exam: alert, oriented x 3, cooperative, normal mood/affect, nml cerebellar function, nml station & gait, sensation nml, No motor deficits Eye Exam: PERRL/EOMI, eyes nml inspection Ears, Nose, Throat Exam: normal ENT inspection, TMs normal, pharynx normal, moist mucous membranes Neck Exam: normal inspection, non-tender, supple, full range of motion Respiratory Exam: normal breath sounds, lungs clear, No respiratory distress Cardiovascular Exam: regular rate/rhythm, normal heart sounds, normal peripheral pulses Gastrointestinal/Abdomen Exam: soft, normal bowel sounds, No tenderness, No mass Back Exam: normal inspection, normal range of motion, No CVA tenderness, No vertebral tenderness Extremity Exam: normal inspection, normal range of motion, pelvis stable Skin Exam: normal color, warm, dry, No rash Lymphatic Exam: No adenopathy Assessment/Plan (1) UTI (urinary tract infection) Status: Acute Assessment & Plan: pt. will be placed on antibiotics Code(s): N39.0 - URINARY TRACT INFECTION, SITE NOT SPECIFIED (2) Altered mental state Status: Acute Assessment & Plan: work-up for treatable causes will be intiated. Code(s): R41.82 - ALTERED MENTAL STATUS, UNSPECIFIED Hospital Summary - Hospital Course Hospital Course: pt. improved after appropriate treatment of UTI, work-up of treatable causes of altered mental status were ruled out and patient was stable and ready for discharge to care of family - Vitals & Intake/Output Vital Signs: Vital Signs Temperature 97.6 F 11/24/20 16:00 Pulse Rate 57 L 11/24/20 16:00 Respiratory Rate 16 11/24/20 16:00 Blood Pressure 149/67 11/24/20 16:00 O2 Sat by Pulse Oximetry 96 11/24/20 16:00 - Lab Result Diagrams: 11/23/20 18:45 11/23/20 18:45 - Discharge Discharge Date: 11/24/20 Disposition: Home, Self-Care Condition: Stable Prescriptions: New Amoxicillin 875 mg PO BID #20 tablet Aspirin EC 325 mg [Ecotrin 325 MG] 325 mg PO DAILY #30 tablet.ec Clopidogrel Bisulfate 75 mg [PLAVIX 75 MG Tablet] 75 mg PO DAILY #30 tablet Continue Sodium Chloride [Cortes-128] 2 drops OP QID Hypromellose [Genteal] 1 drops OP TID Acetaminophen 500 mg [Tylenol Extra Strength 500 mg] 500 - 1,000 mg PO Q4H PRN PRN tablet PRN Reason: Mild To Moderate Pain Mecobalamin [B12 Active] 2,500 mcg PO DAILY fluorouraciL [Fluorouracil] 40 gm TP HS Discontinued Aspirin [Aspirin EC] 81 mg PO DAILY Instructions: Transient Ischemic Attack (DC), Urinary Tract Infection, Adult (DC) Follow up with: SANDY ROWLAND DO [Primary Care Provider] - Call for Appointment (1 WEEK) Forms: Discharge Instructions
== END 2020-11-24 18:15 | disposition home or self-care (01) ==
LOC: MED SURG 17:32
PROVIDERS: ADMIT Family Medicine; ATTEND Family Medicine
DX: N39.0 Urinary tract infection, site not specified (principal); G45.9 Transient cerebral ischemic attack, unspecified; R41.82 Altered mental status, unspecified; Z20.828 Contact with and (suspected) exposure to other viral communicable diseases; Z79.899 Other long term (current) drug therapy; Z79.01 Long term (current) use of anticoagulants
CPT/HCPCS: 0241U; 36415; 70551; 80053; 81001; 84443; 85027; 87086; 93306; 93880; G0378; A9270-GY

== ENCOUNTER 2021-09-13 19:20 | Emergency (ER) | payer MEDICARE ==
--- NOTE | 2021-09-13 20:41 | ERPHSYRPT ---
- History of Present Illness Time Seen by Provider: 09/13/21 19:40 Source: patient Exam Limitations: no limitations Patient Subjective Stated Complaint: pt states "I was vomiting and had diarrhea at the same time but it has easied up." Triage Nursing Assessment: pt ambulated into the er; pt is axo x4; c/o N/V/D for the past 2 hours; pt denies pain; abd is soft and nontender; active bowel sounds in all quads; pt states last emesis and diarrhea was at 1830; mucus membrane pink and moist; vitals wnl Physician History: Patient is an 81-year-old female presents to our ED for evaluation of diarrhea that occurred just prior to arrival. Patient states she had a bout of diarrhea today at the same time she vomited. She had one episode. Symptoms resolved. No associated chest pain. No shortness of breath. No abdominal pain. No fever. Patient asymptomatic at this time. Symptoms were transient. No dizziness. Symptoms are mild to moderate in intensity when present. Patient voices no other complaints or concerns at this time. Timing/Duration: today Severity: moderate Modifying Factors: Improves With: nothing Associated Symptoms: nausea, vomiting Allergies/Adverse Reactions: No Known Drug Allergies Allergy (Verified 09/13/21 19:31) Home Medications: Hypromellose [Genteal] 1 drops OP TID 12/01/18 [History] Sodium Chloride [Cortes-128] 2 drops OP QID 12/01/18 [History] Mecobalamin [B12 Active] 2,500 mcg PO DAILY 11/23/20 [History] fluorouraciL [Fluorouracil] 40 gm TP HS 11/23/20 [History] Hx Tetanus, Diphtheria Vaccination/Date Given: No Hx Influenza Vaccination/Date Given: No Hx Pneumococcal Vaccination/Date Given: No Travel Risk - International Travel Have you traveled outside of the country in past 3 weeks: No - Coronavirus Screening Are you exhibiting any of the following symptoms?: Yes Symptoms: Vomiting/Diarrhea - Vaccine Status Have you recieved a Covid-19 vaccination: Yes [employer]: [employer] - Vaccination Dates Date of 2cond Vaccination (if applicable): 09/20/20 Comment: received booster - Review of Systems Constitutional: No Symptoms, No Fever, No Chills Eyes: No Symptoms Ears, Nose, & Throat: No Symptoms Respiratory: No Symptoms, No Cough, No Dyspnea Cardiac: No Symptoms, No Chest Pain, No Edema, No Syncope Abdominal/Gastrointestinal: No Symptoms, No Abdominal Pain, No Nausea, No Vomiting, No Diarrhea Genitourinary Symptoms: No Symptoms, No Dysuria Musculoskeletal: No Symptoms, No Back Pain, No Neck Pain Skin: No Symptoms, No Rash Neurological: No Symptoms, No Dizziness, No Focal Weakness, No Sensory Changes Psychological: No Symptoms Endocrine: No Symptoms Hematologic/Lymphatic: No Symptoms Immunological/Allergic: No Symptoms All Other Systems: Reviewed and Negative - Past Medical History Pertinent Past Medical History: Yes Neurological History: No Pertinent History ENT History: Other Cardiac History: No Pertinent History Respiratory History: Pneumonia Endocrine Medical History: No Pertinent History Musculoskeletal History: No Pertinent History GI Medical History: No Pertinent History, Other History: No Pertinent History, Other Psycho-Social History: No Pertinent History Female Reproductive Disorders: No Pertinent History Other Medical History: 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 Dr. Prem Barriga in [place], [place] - Past Surgical History Past Surgical History: Yes (cornea transplant) Neuro Surgical History: No Pertinent History Cardiac: No Pertinent History Respiratory: No Pertinent History Gastrointestinal: Appendectomy Genitourinary: No Pertinent History Musculoskeletal: No Pertinent History Female Surgical History: Tubal Ligation Other Surgical History: tubal ligation. appendectomy. skin cancers removed right leg - Social History Smoking Status: Never smoker Exposure to second hand smoke: No Drug Use: none Patient Lives Alone: No - Female History Hx Now: No - Nursing Vital Signs Nursing Vital Signs: Initial Vital Signs Temperature 97.3 F 09/13/21 19:33 Pulse Rate 69 09/13/21 19:33 Respiratory Rate 16 09/13/21 19:33 Blood Pressure 143/71 09/13/21 19:33 O2 Sat by Pulse Oximetry 96 09/13/21 19:33 Pain Scale Pain Intensity 0 - Physical Exam General Appearance: no apparent distress, alert Eye Exam: PERRL/EOMI, eyes nml inspection Ears, Nose, Throat Exam: normal ENT inspection, TMs normal, pharynx normal, moist mucous membranes, No dry mucous membranes Neck Exam: normal inspection, non-tender, supple, full range of motion Respiratory Exam: normal breath sounds, lungs clear, airway intact, No respiratory distress Cardiovascular Exam: regular rate/rhythm, normal heart sounds, normal peripheral pulses Gastrointestinal/Abdomen Exam: soft, normal bowel sounds, No tenderness, No mass Back Exam: normal inspection, normal range of motion, No CVA tenderness, No vertebral tenderness Extremity Exam: normal inspection, normal range of motion, pelvis stable Neurologic Exam: alert, oriented x 3, cooperative, normal mood/affect, nml cerebellar function, nml station & gait, sensation nml, No motor deficits Skin Exam: normal color, warm, dry, No rash Lymphatic Exam: No adenopathy SpO2 Interpretation: normal SpO2: 96 O2 Delivery: Room Air - Course Nursing assessment & vital signs reviewed: Yes - Progress Progress: unchanged Progress Note: Patient reassessed. She feels well. Patient is ready for discharge. She denies pain. No abdominal pain. No chest pain. Patient is not dizzy. No nausea. No episodes of diarrhea in our ED. Patient agrees to follow-up with her primary care doctor within 48 hours for evaluation. Patient voices no other complaints concerns at this time. Portions of this note were created with voice recognition technology. There may be grammatical, spelling, punctuation or sound alike errors 09/13/21 20:39 Counseled pt/family regarding: diagnosis, need for follow-up - Departure Departure Disposition: Home Clinical Impression: Nausea vomiting and diarrhea Condition: Stable Critical Care Time: No Referrals: SANDY ROWLAND DO [ACTIVE STAFF] - Follow up/PCP as directed Additional Instructions: Discharge/Care Plan OZ BEJARANO was seen on 09/13/21 in the Emergency Room. The patient was counseled regarding Diagnosis,Lab results, Imaging studies, need for follow up and when to return to the Emergency Room. Prescriptions given: Discharge Note I have spoken with the patient and/or caregivers. I have explained the patient's condition, diagnosis and treatment plan based on the information available to me at this time. I have answered the patient's and/or caregiver's questions and addressed any concerns. The patient and/or caregivers have as good understanding of the patient's diagnosis, condition and treatment plan as can be expected at this point. The vital signs have been stable. The patient's condition is stable and appropriate for discharge from the emergency department. The patient will pursue further outpatient evaluation with the primary care physician or other designated or consulting physician as outlined in the discharge instructions. The patient and/or caregivers are agreeable to this plan of care and follow-up instructions have been explained in detail. The patient and/or caregivers have received these instruction. The patient/and or caregivers are aware that any significant change in condition or worsening of symptoms should prompt an immediate return to this or the closest emergency department or call 911.
[2021-09-13 20:43] VITALS: BP 120/57; PULSE 71; O2SAT 97
== END 2021-09-13 20:45 | disposition home or self-care (01) ==
LOC: ED 19:20
DX: R19.7 Diarrhea, unspecified (principal); R11.2 Nausea with vomiting, unspecified; Z79.899 Other long term (current) drug therapy
CPT/HCPCS: 99283

== ENCOUNTER 2023-01-10 15:38 | Observation (INO) | payer MEDICARE ==
[2023-01-10 16:07] LABS: Absolute Neutrophil Ct (ANC) 3.01 x10^3/uL (1.4-6.9); BASOPHIL % 0.8 % (0.0-0.4); Basophil (Absolute #) 0.05 x10^3/uL (0-0.4); Eosinophil (Absolute #) 0.55 x10^3/uL (0-0.5); Hematocrit 34.6 % (35-47); IMMATURE GRAN # 0.03 x10^3u/L (0.00-0.03); IMMATURE GRAN % 0.5 % (0.00-0.4); Lymphocyte (Absolute #) 1.58 x10^3/uL (1.0-4.6); Mean Cell Volume 91.8 fL (78-100); Mean Corpuscular Hemoglobin 29.2 pg (26-32); Mean Corpuscular Hgb Concent. 31.8 g/dL (32-36); Mean Platelet Volume 11.3 fL (7.5-11.0); Monocyte (Absolute #) 0.86 x10^3/uL (0.0-1.3); Monocytes % 14.1 % (0.0-12.0); Neutrophil % 49.6 % (36.0-66.0); Platelet Count 164 x10^3/uL (150-450); Red Blood Count 3.77 x10^6/uL (4.1-5.4); Red Cell Distribution Width 14.6 % (11.5-14.0); White Blood Count 6.1 x10^3/uL (4.0-10.5)
--- NOTE | 2023-01-10 16:29 | XRAY ---
Indication: Dyspnea. Comparison: October 04, 2022 Portable chest remains hyperinflated and clear. Heart not enlarged. Bony thorax intact again with osteopenia, mild degenerative changes, and mild levoscoliosis. Impression: Continued nonacute hyperinflated chest.
--- NOTE | 2023-01-10 16:32 | ERPHSYRPT ---
- History of Present Illness Source: patient, other (Daughter) Exam Limitations: no limitations Patient Subjective Stated Complaint: pt here for low o2 sats back in november, she co sob off and one, and family states she is getting more confused Triage Nursing Assessment: pt alert, resp easy, skin w/d/p.edema to ankles, bruise to left scientologist area from a fall a week ago Physician History: 82 yo WF w dyspnea x several months. Pt has chronic cough/coryza which has not worsened. She denies fever/chest pain/nausea/vomiting/diarrhea/hematochezia/focal weakness/abdominal pain/dysuria/hematuria. Timing/Duration: other (Several months) Activities at Onset: rest Severity of Dyspnea-Max: mild Severity of Dyspnea-Current: none Possible Cause: occasional episodes Modifying Factors: Improves With: nothing Associated Symptoms: denies symptoms Allergies/Adverse Reactions: No Known Drug Allergies Allergy (Verified 01/10/23 15:48) Home Medications: Sodium Chloride [Cortes-128] 2 drops OP QID 12/01/18 [History] fluorouraciL [Fluorouracil] 40 gm TP HS 11/23/20 [History] Ferrous Sulfate 325 mg [Feosol 325 mg] 325 mg PO DAILY 01/10/23 [History] Furosemide 40 mg [Lasix 40 MG] 40 mg PO BID 01/10/23 [History] Metoprolol Succinate 25 mg Xl* [Toprol-Xl 25MG Tablets] 25 mg PO DAILY 01/10/23 [History] Potassium Citrate [Potassium Citrate ER] 1 ea TID 01/10/23 [History] Sertraline HCl 50 mg [Zoloft 50 mg Tablet] 50 mg PO DAILY 01/10/23 [History] Spironolactone [Aldactone] 50 mg PO DAILY 01/10/23 [History] Hx Tetanus, Diphtheria Vaccination/Date Given: No Hx Influenza Vaccination/Date Given: Yes Hx Pneumococcal Vaccination/Date Given: Yes Immunizations Up to Date: Yes Travel Risk - International Travel Have you traveled outside of the country in past 3 weeks: No - Coronavirus Screening Are you exhibiting any of the following symptoms?: No Close contact with a COVID-19 positive Pt in past 14-21 Days: No - Vaccine Status Have you recieved a Covid-19 vaccination: Yes [employer]: [employer] - Vaccination Dates Date of 2cond Vaccination (if applicable): 09/20/20 - Review of Systems Constitutional: No Symptoms, Malaise Eyes: No Symptoms Ears, Nose, & Throat: No Symptoms Respiratory: No Symptoms, Dyspnea Cardiac: No Symptoms Abdominal/Gastrointestinal: No Symptoms Genitourinary Symptoms: No Symptoms Musculoskeletal: No Symptoms Skin: No Symptoms Neurological: No Symptoms Psychological: No Symptoms Endocrine: No Symptoms Hematologic/Lymphatic: No Symptoms Immunological/Allergic: No Symptoms - Past Medical History Pertinent Past Medical History: Yes Neurological History: Stroke, TIA ENT History: Other Cardiac History: Congestive Heart Failure Respiratory History: No Pertinent History Endocrine Medical History: No Pertinent History Musculoskeletal History: No Pertinent History GI Medical History: No Pertinent History, Other History: No Pertinent History, Renal Disease, Other Psycho-Social History: No Pertinent History Female Reproductive Disorders: No Pertinent History Other Medical History: ANXIETY/DEPRESSION. SX HX: TUBAL LIGATION, APPENDECTOMY. VACCINATED FOR COVID. ANSWERED NO TO ALL COVID SCREENING QUESTIONS. TEMP 97.3 - Past Surgical History Past Surgical History: Yes (cornea transplant) Neuro Surgical History: No Pertinent History Cardiac: No Pertinent History, Cardiac Catheterization Respiratory: No Pertinent History Gastrointestinal: Appendectomy Genitourinary: No Pertinent History Musculoskeletal: No Pertinent History Female Surgical History: Tubal Ligation Other Surgical History: tubal ligation. appendectomy. skin cancers removed right leg - Social History Smoking Status: Never smoker Exposure to second hand smoke: No Drug Use: none Patient Lives Alone: No (but has no help) - Nursing Vital Signs Nursing Vital Signs: Initial Vital Signs Respiratory Rate 65 H 01/10/23 15:47 O2 Sat by Pulse Oximetry 99 01/10/23 15:47 Pain Scale Pain Intensity 0 WNL - Physical Exam General Appearance: no apparent distress Eye Exam: PERRL/EOMI, eyes nml inspection Ears, Nose, Throat Exam: hearing grossly normal, normal ENT inspection, normal pharynx Neck Exam: normal inspection, non-tender, supple, full range of motion, No Brudzinski, No Kernig's Respiratory Exam: normal breath sounds, lungs clear, airway intact, No respiratory distress Cardiovascular/Chest Exam: normal heart sounds, regular rate/rhythm, normal peripheral pulses, No murmur Abdominal/Gastrointestinal Exam: soft, normal bowel sounds, No tenderness Extremity Exam: non-tender, normal range of motion, normal inspection Peripheral Pulses Exam: carotid (R): 2+, carotid (L): 2+ Neurologic Exam: alert, oriented x 3, cooperative, outbound call center representative II-XII nml as tested, normal mood/affect, nml cerebellar function, nml station & gait, sensation nml Skin Exam: normal color, warm, dry Lymphatic Exam: No adenopathy SpO2 Interpretation: normal SpO2: 100 O2 Delivery: Room Air - Course Nursing assessment & vital signs reviewed: Yes EKG Interpreted by Me: RATE (NSR/Rate 64/Normal QT-QTc/Non-specific Twave abnormality/No acute ST segment changes) - Radiology Exams Chest X-ray Interpretation: Reviewed by me, Discussed w/ radiologist (CXR neg per Rad) Ordered Tests: Active Orders 24 hr Category Date Time Status EKG-ER Only STAT Care 01/10/23 15:46 Active CHEST 1 VIEW (PORTABLE) Stat Exams 01/10/23 15:46 Completed CBC W DIFF Stat Lab 01/10/23 16:00 Completed CMP Stat Lab 01/10/23 16:00 Completed NT PRO BNPII Stat Lab 01/10/23 Completed PROTIME WITH INR Stat Lab 01/10/23 16:00 Completed PTT Stat Lab 01/10/23 16:00 Completed TROPONIN Q4H Lab 01/10/23 16:00 Completed TROPONIN Q4H Lab 01/10/23 20:00 Ordered TROPONIN Q4H Lab 01/11/23 00:00 Ordered Lab/Rad Data: Laboratory Result Diagrams 01/10/23 16:00 01/10/23 16:00 Laboratory Results 01/10/23 01/10/23 01/10/23 Range/Units Unknown 16:00 16:00 WBC (4.0-10.5) x10^3/uL RBC (4.1-5.4) x10^6/uL Hgb (12.0-16.0) g/dL Hct (35-47) % MCV (78-100) fL MCH (26-32) pg MCHC (32-36) g/dL RDW (11.5-14.0) % Plt Count (150-450) x10^3/uL MPV (7.5-11.0) fL Gran % (36.0-66.0) % Immature Gran % (Auto) (0.00-0.4) % Nucleat RBC Rel Count (0.00-0.1) % Eos # (Auto) (0-0.5) x10^3/uL Immature Gran # (Auto) (0.00-0.03) x10^3u/L Absolute Lymphs (auto) (1.0-4.6) x10^3/uL Absolute Monos (auto) (0.0-1.3) x10^3/uL Absolute Nucleated RBC (0.00-0.01) x10^3u/L Lymphocytes % (24.0-44.0) % Monocytes % (0.0-12.0) % Eosinophils % (0.00-5.0) % Basophils % (0.0-0.4) % Absolute Granulocytes (1.4-6.9) x10^3/uL Basophils # (0-0.4) x10^3/uL PT 10.7 (9.4-12.5) SECONDS INR 0.98 (0.8-3.0) APTT 22.1 L (25.1-36.5) SECONDS Sodium (137-145) mmol/L Potassium (3.5-5.1) mmol/L Chloride (98-107) mmol/L Carbon Dioxide (22-30) mmol/L Anion Gap (5-15) MEQ/L BUN (7-17) mg/dL Creatinine (0.52-1.04) mg/dL Estimated GFR ML/MIN Glucose (74-106) mg/dL Calcium (8.4-10.2) mg/dL Total Bilirubin (0.2-1.3) mg/dL AST (14-36) U/L ALT (0-35) U/L Alkaline Phosphatase (38-126) U/L Troponin I < 0.012 (0.000-0.034) ng/mL NT-Pro-B Natriuret Pep 2360 (<300) pg/mL Serum Total Protein (6.3-8.2) g/dL Albumin (3.5-5.0) g/dL 01/10/23 01/10/23 Range/Units 16:00 16:00 WBC 6.1 (4.0-10.5) x10^3/uL RBC 3.77 L (4.1-5.4) x10^6/uL Hgb 11.0 L (12.0-16.0) g/dL Hct 34.6 L (35-47) % MCV 91.8 (78-100) fL MCH 29.2 (26-32) pg MCHC 31.8 L (32-36) g/dL RDW 14.6 H (11.5-14.0) % Plt Count 164 (150-450) x10^3/uL MPV 11.3 H (7.5-11.0) fL Gran % 49.6 (36.0-66.0) % Immature Gran % (Auto) 0.5 H (0.00-0.4) % Nucleat RBC Rel Count 0.0 (0.00-0.1) % Eos # (Auto) 0.55 H (0-0.5) x10^3/uL Immature Gran # (Auto) 0.03 (0.00-0.03) x10^3u/L Absolute Lymphs (auto) 1.58 (1.0-4.6) x10^3/uL Absolute Monos (auto) 0.86 (0.0-1.3) x10^3/uL Absolute Nucleated RBC 0.00 (0.00-0.01) x10^3u/L Lymphocytes % 26.0 (24.0-44.0) % Monocytes % 14.1 H (0.0-12.0) % Eosinophils % 9.0 H (0.00-5.0) % Basophils % 0.8 (0.0-0.4) % Absolute Granulocytes 3.01 (1.4-6.9) x10^3/uL Basophils # 0.05 (0-0.4) x10^3/uL PT (9.4-12.5) SECONDS INR (0.8-3.0) APTT (25.1-36.5) SECONDS Sodium 137 (137-145) mmol/L Potassium 4.6 (3.5-5.1) mmol/L Chloride 94 L (98-107) mmol/L Carbon Dioxide 28 (22-30) mmol/L Anion Gap 19.6 H (5-15) MEQ/L BUN 57 H (7-17) mg/dL Creatinine 4.09 H (0.52-1.04) mg/dL Estimated GFR 11.0 ML/MIN Glucose 98 (74-106) mg/dL Calcium 10.9 H (8.4-10.2) mg/dL Total Bilirubin 0.50 (0.2-1.3) mg/dL AST 41 H (14-36) U/L ALT 20 (0-35) U/L Alkaline Phosphatase 59 (38-126) U/L Troponin I (0.000-0.034) ng/mL NT-Pro-B Natriuret Pep (<300) pg/mL Serum Total Protein 9.0 H (6.3-8.2) g/dL Albumin 4.6 (3.5-5.0) g/dL - Progress Progress Note: 01/10/23 17:48 Nursing note and vital signs reviewed No food or housing insecurities noted Additional history per daughter All lab results reviewed and shared w pt/daughter CXR result reviewed and shared w pt/daughter Obs per Dr. Abdi Pt wants DNR status Counseled pt/family regarding: lab results, diagnosis, need for follow-up, rad results Medical Desision Making - Independent Historian Additional History obtained from: Child - Diagnostic Testing Diagnostic test were ordered, analyzed, and reviewed by me: Yes Radiological Interpretation: Reviewed by me - Risk of complications The pt has a high risk of morbidity or mortality based on: Decision regarding hospitilization or escalation of hosp level of care - Departure Departure Disposition: Observation Clinical Impression: Dehydration Condition: Stable Critical Care Time: No Referrals: CRISTÓBAL ABDI MD [Primary Care Provider] - Follow up/PCP as directed
[2023-01-10 16:33] LABS: ALBUMIN 4.6 g/dL (3.5-5.0); ANION GAP 19.6 MEQ/L (5-15); BILIRUBIN,TOTAL 0.5 mg/dL (0.2-1.3); Calcium 10.9 mg/dL (8.4-10.2); Creatinine 1 4.09 mg/dL (0.52-1.04); INR 0.98 (0.8-3.0); PROTIME 10.7 SECONDS (9.4-12.5); PTT 22.1 SECONDS (25.1-36.5); Potassium 4.6 mmol/L (3.5-5.1)
[2023-01-10] MEDS ORDERED: Zofran 4 MG/2 ML VIAL IV PRN (17:44)
[2023-01-10 17:45] LABS: INFLUENZA A NEGATIVE (NEGATIVE); INFLUENZA B NEGATIVE (NEGATIVE); RESPIRATORY SYNCTIAL VIRUS NEGATIVE (NEGATIVE); SARS-CoV-2 Xpert Express NEGATIVE (NEGATIVE)
--- NOTE | 2023-01-10 20:14 | PCM.HP ---
History of Present Illness - Chief Complaint Chief Complaint: DEHYDRATION History of Present Illness: 82 yo wf with hx of CKD, CHF(EF unknown), HTN presents with confusion. ED notes suggest patient here for intermittent chronic sob and confusion. Pt is unable to give hx but nursing notes pt here for placement. APS case presents as family worried about pt taking care of self. She denies complaints of sob/n/v/d. States she is eating. States she is active. States she is compliant with her me dications. She was noted to have an IVY thus admitted for further w/u. - Review of Systems Constitutional: No Symptoms Eyes: No Symptoms Ears, Nose, & Throat: No Symptoms Respiratory: Short Of Breath Cardiac: No Symptoms Abdominal/Gastrointestinal: No Symptoms Genitourinary Symptoms: No Symptoms Musculoskeletal: No Symptoms Skin: No Symptoms Neurological: Irritability Psychological: No Symptoms Endocrine: No Symptoms Hematologic/Lymphatic: No Symptoms Immunological/Allergic: No Symptoms Medications & Allergies Home Medications: Home Medication List Sodium Chloride [Cortes-128] 2 drops OP QID 12/01/18 [History Confirmed 01/10/23] fluorouraciL [Fluorouracil] 40 gm TP HS 11/23/20 [History Confirmed 01/10/23] Aspirin EC 325 mg [Ecotrin 325 MG] 325 mg PO DAILY #30 tablet.ec 11/24/20 [Rx Confirmed 01/10/23] Clopidogrel Bisulfate [PLAVIX Tablet] 75 mg PO DAILY #30 tablet 11/24/20 [Rx Confirmed 01/10/23] Ferrous Sulfate 325 mg [Feosol 325 mg] 325 mg PO DAILY 01/10/23 [History Confirmed 01/10/23] Furosemide 40 mg [Lasix 40 MG] 40 mg PO BID 01/10/23 [History Confirmed 01/10/23] Metoprolol Succinate 25 mg Xl* [Toprol-Xl 25MG Tablets] 25 mg PO DAILY 01/10/23 [History Confirmed 01/10/23] Potassium Citrate [Potassium Citrate ER] 1 ea TID 01/10/23 [History Confirmed 01/10/23] Sertraline HCl 50 mg [Zoloft 50 mg Tablet] 50 mg PO DAILY 01/10/23 [History Confirmed 01/10/23] Spironolactone [Aldactone] 50 mg PO DAILY 01/10/23 [History Confirmed 01/10/23] Allergies/Adverse Reactions: Allergies Allergy/AdvReac Type Severity Reaction Status Date / Time No Known Drug Allergies Allergy Verified 01/10/23 15:48 - Past Medical History Past Medical History: Yes Neurological History: Stroke, TIA ENT History: Other Cardiac History: Congestive Heart Failure Respiratory History: No Pertinent History Endocrine Medical History: No Pertinent History Musculoskelatal History: No Pertinent History GI Medical History: No Pertinent History, Other History: No Pertinent History, Renal Disease, Other Pyscho-Social History: No Pertinent History Reproductive Disorders: No Pertinent History Comment: ANXIETY/DEPRESSION. SX HX: TUBAL LIGATION, APPENDECTOMY. VACCINATED FOR COVID. ANSWERED NO TO ALL COVID SCREENING QUESTIONS. TEMP 97.3 - Past Surgical History Past Surgical History: Yes (cornea transplant) Neuro Surgical History: No Pertinent History Cardiac History: No Pertinent History, Cardiac Catheterization Respiratory Surgery: No Pertinent History GI Surgical History: Appendectomy Genitourinary Surgical Hx: No Pertinent History Musculskeletal Surgical Hx: No Pertinent History Female Surgical History: Tubal Ligation Other Surgical History: tubal ligation. appendectomy. skin cancers removed right leg - Social History Smoking Status: Never smoker Exposure to second hand smoke: No Alcohol: None Drug Use: none - Physical Exam Vital Signs: Vital Signs - 24 hr Temp Pulse Resp BP Pulse Ox 01/10/23 17:49 100 01/10/23 17:44 97.1 F 66 18 133/61 96 01/10/23 16:00 100 01/10/23 15:47 65 H 99 General Appearance: no apparent distress Neurologic Exam: alert, oriented x 3, cooperative Eye Exam: PERRL/EOMI, eyes nml inspection Ears, Nose, Throat Exam: normal ENT inspection Neck Exam: normal inspection Respiratory Exam: normal breath sounds Cardiovascular Exam: regular rate/rhythm Gastrointestinal/Abdomen Exam: soft, normal bowel sounds, No tenderness Extremity Exam: other (edema/pitting, 2+) Skin Exam: normal color Results - Labs Lab/Micro Results: Lab Results-Last 24 Hours 01/10/23 01/10/23 01/10/23 Range/Units 16:00 16:00 16:00 WBC 6.1 (4.0-10.5) x10^3/uL RBC 3.77 L (4.1-5.4) x10^6/uL Hgb 11.0 L (12.0-16.0) g/dL Hct 34.6 L (35-47) % MCV 91.8 (78-100) fL MCH 29.2 (26-32) pg MCHC 31.8 L (32-36) g/dL RDW 14.6 H (11.5-14.0) % Plt Count 164 (150-450) x10^3/uL MPV 11.3 H (7.5-11.0) fL Gran % 49.6 (36.0-66.0) % Immature Gran % (Auto) 0.5 H (0.00-0.4) % Nucleat RBC Rel Count 0.0 (0.00-0.1) % Eos # (Auto) 0.55 H (0-0.5) x10^3/uL Immature Gran # (Auto) 0.03 (0.00-0.03) x10^3u/L Absolute Lymphs (auto) 1.58 (1.0-4.6) x10^3/uL Absolute Monos (auto) 0.86 (0.0-1.3) x10^3/uL Absolute Nucleated RBC 0.00 (0.00-0.01) x10^3u/L Lymphocytes % 26.0 (24.0-44.0) % Monocytes % 14.1 H (0.0-12.0) % Eosinophils % 9.0 H (0.00-5.0) % Basophils % 0.8 (0.0-0.4) % Absolute Granulocytes 3.01 (1.4-6.9) x10^3/uL Basophils # 0.05 (0-0.4) x10^3/uL PT 10.7 (9.4-12.5) SECONDS INR 0.98 (0.8-3.0) APTT 22.1 L (25.1-36.5) SECONDS Sodium 137 (137-145) mmol/L Potassium 4.6 (3.5-5.1) mmol/L Chloride 94 L (98-107) mmol/L Carbon Dioxide 28 (22-30) mmol/L Anion Gap 19.6 H (5-15) MEQ/L BUN 57 H (7-17) mg/dL Creatinine 4.09 H (0.52-1.04) mg/dL Estimated GFR 11.0 ML/MIN Glucose 98 (74-106) mg/dL Calcium 10.9 H (8.4-10.2) mg/dL Total Bilirubin 0.50 (0.2-1.3) mg/dL AST 41 H (14-36) U/L ALT 20 (0-35) U/L Alkaline Phosphatase 59 (38-126) U/L Troponin I (0.000-0.034) ng/mL NT-Pro-B Natriuret Pep (<300) pg/mL Serum Total Protein 9.0 H (6.3-8.2) g/dL Albumin 4.6 (3.5-5.0) g/dL Influenza Type A Ag (NEGATIVE) Influenza Type B Ag (NEGATIVE) RSV (PCR) (NEGATIVE) SARS-CoV-2 (PCR) (NEGATIVE) 01/10/23 01/10/23 01/10/23 Range/Units 16:00 16:00 Unknown WBC (4.0-10.5) x10^3/uL RBC (4.1-5.4) x10^6/uL Hgb (12.0-16.0) g/dL Hct (35-47) % MCV (78-100) fL MCH (26-32) pg MCHC (32-36) g/dL RDW (11.5-14.0) % Plt Count (150-450) x10^3/uL MPV (7.5-11.0) fL Gran % (36.0-66.0) % Immature Gran % (Auto) (0.00-0.4) % Nucleat RBC Rel Count (0.00-0.1) % Eos # (Auto) (0-0.5) x10^3/uL Immature Gran # (Auto) (0.00-0.03) x10^3u/L Absolute Lymphs (auto) (1.0-4.6) x10^3/uL Absolute Monos (auto) (0.0-1.3) x10^3/uL Absolute Nucleated RBC (0.00-0.01) x10^3u/L Lymphocytes % (24.0-44.0) % Monocytes % (0.0-12.0) % Eosinophils % (0.00-5.0) % Basophils % (0.0-0.4) % Absolute Granulocytes (1.4-6.9) x10^3/uL Basophils # (0-0.4) x10^3/uL PT (9.4-12.5) SECONDS INR (0.8-3.0) APTT (25.1-36.5) SECONDS Sodium (137-145) mmol/L Potassium (3.5-5.1) mmol/L Chloride (98-107) mmol/L Carbon Dioxide (22-30) mmol/L Anion Gap (5-15) MEQ/L BUN (7-17) mg/dL Creatinine (0.52-1.04) mg/dL Estimated GFR ML/MIN Glucose (74-106) mg/dL Calcium (8.4-10.2) mg/dL Total Bilirubin (0.2-1.3) mg/dL AST (14-36) U/L ALT (0-35) U/L Alkaline Phosphatase (38-126) U/L Troponin I < 0.012 (0.000-0.034) ng/mL NT-Pro-B Natriuret Pep 2360 (<300) pg/mL Serum Total Protein (6.3-8.2) g/dL Albumin (3.5-5.0) g/dL Influenza Type A Ag NEGATIVE (NEGATIVE) Influenza Type B Ag NEGATIVE (NEGATIVE) RSV (PCR) NEGATIVE (NEGATIVE) SARS-CoV-2 (PCR) NEGATIVE (NEGATIVE) - Radiology Impressions Radiology Exams & Impressions: Radiology Procedures Category Date Time Status CHEST 1 VIEW (PORTABLE) Stat Exams 01/10/23 15:46 Completed Assessment/Plan (1) Dehydration Current Visit: Yes Status: Acute Assessment & Plan: 1. IVY: patient compliant with medications-->significant diuretic use. No GI losses per hx. States eating well. Will hold diuretics. Check UA/urine lytes/CK/US. IVFs overnight and labs in am. 2. Dehydration: presumed. IVFs 3. CHF: holding diuretics and BB this pm. Check echo. 4. Lower extremity edema: check dopplers. 5. Intermittent dyspnea: CXR suggestive of obstructive lung disease. No tobacco hx per charting. Will need outpt PFTs 6. FEN: Oral diet/IVFs 7. Social work consult in am 8. PX: Heparin 9. Pt is DNAR. Discussed on admit. Deepak Crenshaw MD entire encounter done via telemedicine Code(s): E86.0 - DEHYDRATION Telemedicine Encounter - Telemedicine Encounter Telemedicine Encounter: The entirety of this encounter was performed via Telemedicine"
[2023-01-10] MEDS: Sodium Chloride 0.9% 1000 ML 1,000 ML IV SCH (20:30)
[2023-01-10] MEDS: HEPARIN 5000 UNITS/0.5 ML (HIGH RISK MED) SQ SCH (21:17)
[2023-01-10 22:17] LABS: Appearance Clear (Clear); Bilirubin Negative (Negative); Blood Negative (Negative); Glucose, Urine Negative (Negative); Ketones Negative (Negative); Leukocyte Esterase Trace (Negative); Nitrite Negative (Negative); Protein,Urine Dip Negative (Negative); Urobilinogen 0.2 mg/dL (0.2)
[2023-01-10 22:18] LABS: Bacteria None Seen /HPF (None Seen); Epithelial Cells None Seen /HPF (None Seen); RBC 0-2 /HPF (0-5)
[2023-01-10 22:19] LABS: ADD URINE CULTURE? NO (NO)
[2023-01-11 02:19] LABS: ALBUMIN 3.4 g/dL (3.5-5.0); ANION GAP 14.8 MEQ/L (5-15); BILIRUBIN,TOTAL 0.4 mg/dL (0.2-1.3); Calcium 9.6 mg/dL (8.4-10.2); Creatinine 1 3.94 mg/dL (0.52-1.04); EST GLOMERULAR FILTRATION RATE 11.5 ML/MIN; Potassium 4.7 mmol/L (3.5-5.1); Total Protein 6.8 g/dL (6.3-8.2)
[2023-01-11 03:04] LABS: Absolute Neutrophil Ct (ANC) 2.19 x10^3/uL (1.4-6.9); BASOPHIL % 0.8 % (0.0-0.4); Basophil (Absolute #) 0.04 x10^3/uL (0-0.4); Eosinophil % 8.3 % (0.00-5.0); Eosinophil (Absolute #) 0.39 x10^3/uL (0-0.5); Hematocrit 28.7 % (35-47); Hemoglobin 9.1 g/dL (12.0-16.0); IMMATURE GRAN # 0.02 x10^3u/L (0.00-0.03); IMMATURE GRAN % 0.4 % (0.00-0.4); Lymphocytes % 27.6 % (24.0-44.0); Mean Cell Volume 94.1 fL (78-100); Mean Corpuscular Hemoglobin 29.8 pg (26-32); Mean Corpuscular Hgb Concent. 31.7 g/dL (32-36); Mean Platelet Volume 12.4 fL (7.5-11.0); Monocyte (Absolute #) 0.77 x10^3/uL (0.0-1.3); Monocytes % 16.3 % (0.0-12.0); Neutrophil % 46.6 % (36.0-66.0); Platelet Count 132 x10^3/uL (150-450); Red Blood Count 3.05 x10^6/uL (4.1-5.4); Red Cell Distribution Width 14.6 % (11.5-14.0); White Blood Count 4.7 x10^3/uL (4.0-10.5)
[2023-01-11] MEDS: Sodium Chloride 0.9% 1000 ML 1,000 ML IV SCH ×2 (05:40→16:51)
[2023-01-11] MEDS ORDERED: MEDICATION INTERVENTION MC SCH ×2 (07:15)
[2023-01-11] MEDS: PLAVIX Tablet PO SCH (09:23)
[2023-01-11] MEDS: HEPARIN 5000 UNITS/0.5 ML (HIGH RISK MED) SQ SCH ×2 (09:23→21:41)
[2023-01-11] MEDS: ZOLOFT 50 MG TABLET PO SCH (09:23)
[2023-01-11] MEDS: FEOSOL 325 MG PO SCH (09:23)
[2023-01-11] MEDS: Ecotrin 325 MG PO SCH (09:23)
[2023-01-11] MEDS ORDERED: SODIUM CHLORIDE OP SCH (10:00)
[2023-01-11] MEDS ORDERED: [UNRECOGNIZED DRUG - OTHER] OP SCH (10:00)
--- NOTE | 2023-01-11 11:22 | XRAY ---
Indication: Bilateral leg swelling. Two-dimensional sonogram and color Doppler imaging of the major venous vessels of left and right leg performed. Comparison: September 01, 2022 No thrombus seen in the examined deep venous vessels of the left and right leg including greater saphenous veins. Veins demonstrate normal compressibility. Venous waveforms are normal with and without augmentation. Impression: Left and right legs continue to be negative for DVT.
--- NOTE | 2023-01-11 19:40 | PCM.NOTE ---
Date and Time: 01/11/23729 Subjective Assessment: No acute events overnight - Review of Systems Constitutional: No Symptoms Eyes: No Symptoms Ears, Nose, & Throat: No Symptoms Respiratory: No Symptoms Cardiac: No Symptoms Abdominal/Gastrointestinal: No Symptoms Genitourinary Symptoms: No Symptoms Musculoskeletal: No Symptoms Skin: No Symptoms Neurological: No Symptoms Psychological: No Symptoms Endocrine: No Symptoms Hematologic/Lymphatic: No Symptoms Immunological/Allergic: Pollen Allergy All Other Systems: Reviewed and Negative Objective Exam General Appearance: no apparent distress Neurologic Exam: alert Skin Exam: normal color Eye Exam: PERRL, EOMI Ears, Nose, Throat Exam: normal ENT inspection Neck Exam: normal inspection Respiratory Exam: normal breath sounds Cardiovascular Exam: regular rate/rhythm Gastrointestinal/Abdomen Exam: soft, normal bowel sounds Extremity Exam: normal inspection Back Exam: normal inspection Pelvic Exam: deferred Rectal Exam: deferred OBJECTIVE DATA Vital Signs: Vital Signs - 24 hr Temp Pulse Resp BP Pulse Ox 01/11/23 16:00 97.9 F 63 16 134/63 92 L 01/11/23 11:37 97.3 F 56 L 16 99/49 96 01/11/23 07:04 97.8 F 65 16 102/55 94 L 01/11/23 04:00 97.3 F 65 18 99/50 95 01/10/23 23:42 97.5 F 56 L 16 98/51 95 01/10/23 20:00 97.1 F 66 14 133/61 100 01/10/23 19:52 97.1 F 66 14 133/61 100 Pain Assessment - Last Documented Pain Intensity 0 Intake and Output: Intake & Output 01/09/23 01/10/23 01/11/23 01/12/23 11:59 11:59 11:59 11:59 Intake Total 1222 2226 Output Total 900 Balance 322 2226 Weight 50.6 kg Lab Results: Lab Results-Last 24 Hours 01/10/23 01/10/23 01/10/23 Range/Units 20:08 22:03 22:03 WBC (4.0-10.5) x10^3/uL RBC (4.1-5.4) x10^6/uL Hgb (12.0-16.0) g/dL Hct (35-47) % MCV (78-100) fL MCH (26-32) pg MCHC (32-36) g/dL RDW (11.5-14.0) % Plt Count (150-450) x10^3/uL MPV (7.5-11.0) fL Gran % (36.0-66.0) % Immature Gran % (Auto) (0.00-0.4) % Nucleat RBC Rel Count (0.00-0.1) % Eos # (Auto) (0-0.5) x10^3/uL Immature Gran # (Auto) (0.00-0.03) x10^3u/L Absolute Lymphs (auto) (1.0-4.6) x10^3/uL Absolute Monos (auto) (0.0-1.3) x10^3/uL Absolute Nucleated RBC (0.00-0.01) x10^3u/L Lymphocytes % (24.0-44.0) % Monocytes % (0.0-12.0) % Eosinophils % (0.00-5.0) % Basophils % (0.0-0.4) % Absolute Granulocytes (1.4-6.9) x10^3/uL Basophils # (0-0.4) x10^3/uL Sodium (137-145) mmol/L Potassium (3.5-5.1) mmol/L Chloride (98-107) mmol/L Carbon Dioxide (22-30) mmol/L Anion Gap (5-15) MEQ/L BUN (7-17) mg/dL Creatinine (0.52-1.04) mg/dL Estimated GFR ML/MIN Glucose (74-106) mg/dL Calcium (8.4-10.2) mg/dL Total Bilirubin (0.2-1.3) mg/dL AST (14-36) U/L ALT (0-35) U/L Alkaline Phosphatase (38-126) U/L Creatine Kinase (30-135) U/L Troponin I 0.013 (0.000-0.034) ng/mL Serum Total Protein (6.3-8.2) g/dL Albumin (3.5-5.0) g/dL Urine Color Yellow (Yellow) Urine Appearance Clear (Clear) Urine pH 6.0 (4.6-8.0) Ur Specific [place] 1.010 (1.005-1.030) Urine Protein Negative (Negative) Urine Glucose (UA) Negative (Negative) mg/dL Urine Ketones Negative (Negative) Urine Blood Negative (Negative) Urine Nitrite Negative (Negative) Urine Bilirubin Negative (Negative) Urine Urobilinogen 0.2 (0.2) mg/dL Ur Leukocyte Esterase Trace A (Negative) U Hyaline Cast (Auto) 6-10 A (0-2) /LPF Urine Microscopic RBC 0-2 (0-5) /HPF Urine Microscopic WBC 3-5 (0-5) /HPF Ur Epithelial Cells None Seen (None Seen) /HPF Urine Bacteria None Seen (None Seen) /HPF Urine Culture Reflexed NO (NO) Ur Random Creatinine MG/DL Urine Sodium 85 (30-90) mmol/L 01/10/23 01/11/23 01/11/23 Range/Units 22:03 01:55 01:55 WBC 4.7 (4.0-10.5) x10^3/uL RBC 3.05 L (4.1-5.4) x10^6/uL Hgb 9.1 L (12.0-16.0) g/dL Hct 28.7 L (35-47) % MCV 94.1 (78-100) fL MCH 29.8 (26-32) pg MCHC 31.7 L (32-36) g/dL RDW 14.6 H (11.5-14.0) % Plt Count 132 L (150-450) x10^3/uL MPV 12.4 H (7.5-11.0) fL Gran % 46.6 (36.0-66.0) % Immature Gran % (Auto) 0.4 (0.00-0.4) % Nucleat RBC Rel Count 0.0 (0.00-0.1) % Eos # (Auto) 0.39 (0-0.5) x10^3/uL Immature Gran # (Auto) 0.02 (0.00-0.03) x10^3u/L Absolute Lymphs (auto) 1.30 (1.0-4.6) x10^3/uL Absolute Monos (auto) 0.77 (0.0-1.3) x10^3/uL Absolute Nucleated RBC 0.00 (0.00-0.01) x10^3u/L Lymphocytes % 27.6 (24.0-44.0) % Monocytes % 16.3 H (0.0-12.0) % Eosinophils % 8.3 H (0.00-5.0) % Basophils % 0.8 (0.0-0.4) % Absolute Granulocytes 2.19 (1.4-6.9) x10^3/uL Basophils # 0.04 (0-0.4) x10^3/uL Sodium (137-145) mmol/L Potassium (3.5-5.1) mmol/L Chloride (98-107) mmol/L Carbon Dioxide (22-30) mmol/L Anion Gap (5-15) MEQ/L BUN (7-17) mg/dL Creatinine (0.52-1.04) mg/dL Estimated GFR ML/MIN Glucose (74-106) mg/dL Calcium (8.4-10.2) mg/dL Total Bilirubin (0.2-1.3) mg/dL AST (14-36) U/L ALT (0-35) U/L Alkaline Phosphatase (38-126) U/L Creatine Kinase (30-135) U/L Troponin I 0.017 (0.000-0.034) ng/mL Serum Total Protein (6.3-8.2) g/dL Albumin (3.5-5.0) g/dL Urine Color (Yellow) Urine Appearance (Clear) Urine pH (4.6-8.0) Ur Specific [place] (1.005-1.030) Urine Protein (Negative) Urine Glucose (UA) (Negative) mg/dL Urine Ketones (Negative) Urine Blood (Negative) Urine Nitrite (Negative) Urine Bilirubin (Negative) Urine Urobilinogen (0.2) mg/dL Ur Leukocyte Esterase (Negative) U Hyaline Cast (Auto) (0-2) /LPF Urine Microscopic RBC (0-5) /HPF Urine Microscopic WBC (0-5) /HPF Ur Epithelial Cells (None Seen) /HPF Urine Bacteria (None Seen) /HPF Urine Culture Reflexed (NO) Ur Random Creatinine 52.5 MG/DL Urine Sodium (30-90) mmol/L 01/11/23 Range/Units 01:55 WBC (4.0-10.5) x10^3/uL RBC (4.1-5.4) x10^6/uL Hgb (12.0-16.0) g/dL Hct (35-47) % MCV (78-100) fL MCH (26-32) pg MCHC (32-36) g/dL RDW (11.5-14.0) % Plt Count (150-450) x10^3/uL MPV (7.5-11.0) fL Gran % (36.0-66.0) % Immature Gran % (Auto) (0.00-0.4) % Nucleat RBC Rel Count (0.00-0.1) % Eos # (Auto) (0-0.5) x10^3/uL Immature Gran # (Auto) (0.00-0.03) x10^3u/L Absolute Lymphs (auto) (1.0-4.6) x10^3/uL Absolute Monos (auto) (0.0-1.3) x10^3/uL Absolute Nucleated RBC (0.00-0.01) x10^3u/L Lymphocytes % (24.0-44.0) % Monocytes % (0.0-12.0) % Eosinophils % (0.00-5.0) % Basophils % (0.0-0.4) % Absolute Granulocytes (1.4-6.9) x10^3/uL Basophils # (0-0.4) x10^3/uL Sodium 138 (137-145) mmol/L Potassium 4.7 (3.5-5.1) mmol/L Chloride 97 L (98-107) mmol/L Carbon Dioxide 31 H (22-30) mmol/L Anion Gap 14.8 (5-15) MEQ/L BUN 56 H (7-17) mg/dL Creatinine 3.94 H (0.52-1.04) mg/dL Estimated GFR 11.5 ML/MIN Glucose 92 (74-106) mg/dL Calcium 9.6 (8.4-10.2) mg/dL Total Bilirubin 0.40 (0.2-1.3) mg/dL AST 31 (14-36) U/L ALT 15 (0-35) U/L Alkaline Phosphatase 46 (38-126) U/L Creatine Kinase 74 (30-135) U/L Troponin I (0.000-0.034) ng/mL Serum Total Protein 6.8 (6.3-8.2) g/dL Albumin 3.4 L (3.5-5.0) g/dL Urine Color (Yellow) Urine Appearance (Clear) Urine pH (4.6-8.0) Ur Specific [place] (1.005-1.030) Urine Protein (Negative) Urine Glucose (UA) (Negative) mg/dL Urine Ketones (Negative) Urine Blood (Negative) Urine Nitrite (Negative) Urine Bilirubin (Negative) Urine Urobilinogen (0.2) mg/dL Ur Leukocyte Esterase (Negative) U Hyaline Cast (Auto) (0-2) /LPF Urine Microscopic RBC (0-5) /HPF Urine Microscopic WBC (0-5) /HPF Ur Epithelial Cells (None Seen) /HPF Urine Bacteria (None Seen) /HPF Urine Culture Reflexed (NO) Ur Random Creatinine MG/DL Urine Sodium (30-90) mmol/L Radiology Exams: Radiology Procedures Category Date Time Status CHEST 1 VIEW (PORTABLE) Stat Exams 01/10/23 15:46 Completed ECHO W/2D AND DOPPLER [US] Routine Exams 01/11/23 08:00 Taken VENOUS BILATERAL EXTREMITY [US] Routine Exams 01/11/23 08:00 Completed Multi-Disciplinary Progress Notes: Multi-Disciplinary Progress Notes 01/11/23 10:05 Case Management Note by Loree Machado S/W DAUGHTER BOOKER AT BEDSIDE. SHE REPORTS PATIENT IS INDEPENDENT WITH ADLS BUT THAT HER HOME IS INADEQUATE. SHE REPORTS IT HAS MOLD. IT DOES NOT HAVE AIR CONDITIONING. THE WINDOWS WILL NOT OPEN, THE FLOOR IS FALLING THRU IN SEVERAL AREAS. DAUGHTER REPORTS [facility] HAS BEEN NOTIFIED. THEY HAVE TRIED TO COME SEE PATIENT'S HOME BUT PATIENT WOULD NOT ALLOW THEM IN. PATIENT REPORTEDLY HAS BEEN BACK AND FORTH ON BEING AGREEABLE TO PURSUER DIFFERENT HOUSING. CURRENTLY PATIENT AGREEABLE WITH DIFFERENT HOUSING. PATIENT DOES NOT MEET CRITERIA AT THIS TIME FOR REHAB STAY THRU HER MEDICARE. SHE DOES NOT HAVE MEDICAID. DAUGHTER REPORTS PATIENT CANNOT AFFORD A PRIVATE PAY STAY. DAUGHTER REFUSING FOR PATIENT TO RETURN HOME WITH HER AT CT D/T HER HOME BEING TOO SMALL. THERE ALSO SEEMS TO BE PRIOR FAMILY ISSUES REGARDING THIS RELATIONSHIP. PATIENT ALERT AND ORIENTED AT THIS TIME ANSWERING ALL QUESTIONS APPROPRIATELY. HHC AND HOSPICE ARE NOT OPTIONS HOME SITUATION IS UNSAFE. S/W HIMANSHU (CASCARA BARK CUTTER AT [facility])- SHE REPORTS THEY ARE AWARE OF PATIENT'S SITUATION. THE DAUGHTER IS SUPPOSEDLY WORKING ON GETTING HER INTO THE [place]. SHE UNDERSTANDS THAT PATIENT DOES NOT MEET MEDICARE GUIDELINES FOR PLACEMENT AT DC, SHE DOES NOT HAVE THE FUNDS TO PAY FOR A REHAB STAY, AND THAT FAMILY IS REFUSING FOR PATIENT TO STAY WITH HER. SHE STATED THERE IS NOTHING ELSE TO BE DONE AT THIS TIME- PATIENT TO DC HOME TO HER CURRENT LIVING SITUATION. THEY WILL FOLLOWUP. S/W BOOKER AFTER CONVERSATION WITH HIMANSHU. SHE WAS NOTIFIED PER [facility] NOTHING ELSE CAN BE DONE AT THIS TIME. SHE VERIFIED UNDERSTANDING. SHE CONTINUES TO REFUSE FOR PATIENT TO RETURN HOME WITH HER UNTIL OTHER HOUSING CAN BE ESTABLISHED. SHE REPORTS SHE HAS A FAMILY MEMBER THAT WORKS AT THE HOUSING OFFICE- SHE WILL GO THERE TODAY AND START THE PROCESS AGAIN FOR AN APARTMENT THERE. DAUGHTER REPORTS PATIENT WAS DENIED BY MEDICAID 6 YRS AGO. SHE WAS ENCOURAGED TO APPLY AGAIN PATIENT'S HOME WOULD NOT LIKELY BE CONSIDERED AN ASSET AT THIS TIME. SHE VERIFIED UNDERSTANDING AND STATED SHE WOULD GO TO THE MEDICAID OFFICE TODAY. SHE WAS NOTIFIED THAT IF MEDICAID PROCESSES SOONER THAN THE APARTMENT, PATIENT COULD GO TO A NH IN THE MEANTIME OR POSSIBLY ASSISTED LIVING WOULD BECOME AN OPTION. SHE WAS NOTIFIED THAT A HOSPITAL STAY IS NOT REQUIRED FOR THAT- SHE WOULD JUST NEED TO CONTACT THE NH OF CHOICE. Initialized on 01/11/23 10:05 - END OF NOTE Assessment/Plan (1) Altered mental state Current Visit: No Status: Acute Assessment & Plan: ASSESSMENT 1. Altered Mental Status 2. Urinary Tract Infection 3. Acute on Chronic Kidney Disease 4. Acute on Chronic Anemia 5. Chart Diagnosis of CHF 6. Hypertension PLAN 1. Mental status slightly improved 2. Gentle fluids 3. Hold diuresis 4. Ceftriaxone for UTI x 3 days; start date 01/11; cultures pending 5. Monitor Cr - improving 6. Monitor H/H 7. Echo pending 8. Venous US pending 9. Will need placement as family is unsure she can take care of herself at home SQ Heparin The entirety of this encounter was done via telemedicine Joaquin Craig MD Pulmonary and Critical Care Medicine Code(s): R41.82 - ALTERED MENTAL STATUS, UNSPECIFIED
[2023-01-11] MEDS ORDERED: ROCEPHIN 1 Gm-D5w 50 ml Bag** 1 G/50 ML IVPB IV SCH (19:45)
[2023-01-11] MEDS ORDERED: FLUOROURACIL TP SCH (22:00)
[2023-01-12] MEDS: Sodium Chloride 0.9% 1000 ML 1,000 ML IV SCH (03:11)
[2023-01-12 04:43] LABS: Hematocrit 27.4 % (35-47); Hemoglobin 8.4 g/dL (12.0-16.0); Mean Cell Volume 95.1 fL (78-100); Mean Corpuscular Hemoglobin 29.2 pg (26-32); Mean Corpuscular Hgb Concent. 30.7 g/dL (32-36); Mean Platelet Volume 12.1 fL (7.5-11.0); Platelet Count 128 x10^3/uL (150-450); Red Blood Count 2.88 x10^6/uL (4.1-5.4); Red Cell Distribution Width 14.8 % (11.5-14.0); White Blood Count 4.9 x10^3/uL (4.0-10.5)
[2023-01-12 05:13] LABS: ANION GAP 12.8 MEQ/L (5-15); BILIRUBIN,TOTAL 0.2 mg/dL (0.2-1.3); Calcium 7.9 mg/dL (8.4-10.2); Creatinine 1 2.88 mg/dL (0.52-1.04); EST GLOMERULAR FILTRATION RATE 16.6 ML/MIN; Potassium 3.9 mmol/L (3.5-5.1); Total Protein 6.2 g/dL (6.3-8.2)
[2023-01-12 06:49] VITALS: BP 104/51; PULSE 62; O2SAT 91
[2023-01-12] MEDS: HEPARIN 5000 UNITS/0.5 ML (HIGH RISK MED) SQ SCH (08:47)
[2023-01-12] MEDS: PLAVIX Tablet PO SCH (08:48)
[2023-01-12] MEDS: ZOLOFT 50 MG TABLET PO SCH (08:48)
[2023-01-12] MEDS: FEOSOL 325 MG PO SCH (08:48)
[2023-01-12] MEDS: Ecotrin 325 MG PO SCH (08:48)
--- NOTE | 2023-01-12 11:48 | PCM.DS ---
Discharge Summary Date of Admission: 01/10/23 18:10 Date of Discharge: 01/12/23 Admitting Physician: CRISTÓBAL ABDI Primary Care Provider: CRISTÓBAL ABDI Allergies Allergies No Known Drug Allergies Allergy (Verified 01/10/23 15:48) Hospital Summary - Hospital Course Hospital Course: Patient has clinically improved on IV Rocephin. No urine culture sample available, so based on clinical response, will transition to oral Omnicef for empiric course completion. The patient has declined detention placement, which was offered by case management. [facility]PS has been made aware. The patient was seen and examined via telemedicine. The entirety of this en counter was performed via telemedicine. The patient consented to this telemedicine encounter. - Vitals & Intake/Output Vital Signs: Vital Signs Temperature 97.8 F 01/12/23 06:48 Pulse Rate 62 01/12/23 06:48 Respiratory Rate 17 01/12/23 06:48 Blood Pressure 104/51 01/12/23 06:48 O2 Sat by Pulse Oximetry 91 L 01/12/23 06:48 Intake & Output: Intake & Output 01/09/23 01/10/23 01/11/23 01/12/23 11:59 11:59 11:59 11:59 Intake Total 1222 4004 Output Total 900 800 Balance 322 3204 Weight 50.6 kg - Lab Result Diagrams: 01/12/23 04:08 01/12/23 04:08 Lab Results-Last 24 Hrs: Lab Results-Last 24 Hours 01/12/23 01/12/23 01/12/23 Range/Units 04:08 04:08 04:08 WBC 4.9 (4.0-10.5) x10^3/uL RBC 2.88 L (4.1-5.4) x10^6/uL Hgb 8.4 L (12.0-16.0) g/dL Hct 27.4 L (35-47) % MCV 95.1 (78-100) fL MCH 29.2 (26-32) pg MCHC 30.7 L (32-36) g/dL RDW 14.8 H (11.5-14.0) % Plt Count 128 L (150-450) x10^3/uL MPV 12.1 H (7.5-11.0) fL Sodium 139 (137-145) mmol/L Potassium 3.9 (3.5-5.1) mmol/L Chloride 102 (98-107) mmol/L Carbon Dioxide 28 (22-30) mmol/L Anion Gap 12.8 (5-15) MEQ/L BUN 46 H (7-17) mg/dL Creatinine 2.88 H (0.52-1.04) mg/dL Estimated GFR 16.6 ML/MIN Glucose 104 (74-106) mg/dL Calcium 7.9 L D (8.4-10.2) mg/dL Magnesium 1.7 (1.6-2.3) mg/dL Total Bilirubin 0.20 (0.2-1.3) mg/dL AST 25 (14-36) U/L ALT 14 (0-35) U/L Alkaline Phosphatase 54 (38-126) U/L Serum Total Protein 6.2 L (6.3-8.2) g/dL Albumin 3.0 L (3.5-5.0) g/dL - Radiology Exams Ordered Rad Exams-Entire Visit: Radiology Procedures Category Date Time Status CHEST 1 VIEW (PORTABLE) Stat Exams 01/10/23 15:46 Completed ECHO W/2D AND DOPPLER [US] Routine Exams 01/11/23 08:00 Taken VENOUS BILATERAL EXTREMITY [US] Routine Exams 01/11/23 08:00 Completed Discharge Exam General Appearance: no apparent distress Neurologic Exam: alert, oriented x 3, cooperative, property man II-XII nml as tested, normal mood/affect, nml cerebellar function Eye Exam: PERRL Ears, Nose, Throat Exam: normal ENT inspection Neck Exam: normal inspection, non-tender, full range of motion Respiratory Exam: normal breath sounds, lungs clear Cardiovascular Exam: regular rate/rhythm, normal heart sounds Gastrointestinal/Abdomen Exam: soft, normal bowel sounds Back Exam: normal range of motion Extremity Exam: normal inspection, normal range of motion Skin Exam: normal color Final Diagnosis/Problem List - Final Discharge Diagnosis/Problem (1) UTI (urinary tract infection) Current Visit: No Status: Acute Assessment & Plan: Treatment to be continued with empiric PO Omnicef. Code(s): N39.0 - URINARY TRACT INFECTION, SITE NOT SPECIFIED - Discharge Disposition: Home, Self-Care Condition: Stable Prescriptions: New RX: Cefdinir 300 mg PO BID 5 Days #10 cap No Action RX: Sodium Chloride [Cortes-128] 2 drops OP QID RX: fluorouraciL [Fluorouracil] 40 gm TP HS RX: Aspirin EC 325 mg [Ecotrin 325 MG] 325 mg PO DAILY #30 tablet.ec RX: Clopidogrel Bisulfate [PLAVIX Tablet] 75 mg PO DAILY #30 tablet Metoprolol Succinate 25 mg Xl* [Toprol-Xl 25MG Tablets] 25 mg PO DAILY Spironolactone [Aldactone] 50 mg PO DAILY Sertraline HCl 50 mg [Zoloft 50 mg Tablet] 50 mg PO DAILY Furosemide 40 mg [Lasix 40 MG] 40 mg PO BID Potassium Citrate [Potassium Citrate ER] 1 ea TID Ferrous Sulfate 325 mg [Feosol 325 mg] 325 mg PO DAILY Outpatient Orders: BMP Time Frame: 01/17/23, Facility: [facility] Hosp, Location: LABORATORY CBC Time Frame: 01/17/23, Facility: [facility]. Hosp, Location: LABORATORY Instructions: Dehydration, Adult (DC), Urinary Tract Infection, Adult (DC) Additional Instructions: YOU NEED TO HAVE LABWORK DONE ON 01/17/23 Follow up with: CRISTÓBAL ABDI MD [Primary Care Provider] - 01/19/23 9:15 am
[2023-01-12] MEDS ORDERED: ROCEPHIN 1 Gm-D5w 50 ml Bag** 1 G/50 ML IVPB IV SCH (22:00)
== END 2023-01-12 11:05 | disposition home or self-care (01) ==
LOC: ED 15:38 → MED SURG 18:10
PROVIDERS: ADMIT Family Medicine; ATTEND Family Medicine
DX: N39.0 Urinary tract infection, site not specified (principal); I13.0 Hypertensive heart and chronic kidney disease with heart failure and stage 1 through stage 4 chronic kidney disease, or unspecified chronic kidney disease; I50.9 Heart failure, unspecified; N18.9 Chronic kidney disease, unspecified; R60.0 Localized edema; E86.0 Dehydration; R41.82 Altered mental status, unspecified; D64.9 Anemia, unspecified; Z79.899 Other long term (current) drug therapy; Z20.828 Contact with and (suspected) exposure to other viral communicable diseases; Z79.01 Long term (current) use of anticoagulants; Z85.828 Personal history of other malignant neoplasm of skin
CPT/HCPCS: 0241U; 36415; 71045; 80053; 81001; 82550; 82570; 83735; 83880; 84300; 84484; 85025; 85027; 85610; 85730; 93005; 93306; 93970; 99283; G0378; Q3014; J0696; J1644; A9270-GY

== ENCOUNTER 2023-02-01 12:23 | Emergency (ER) | payer MEDICARE ==
[2023-02-01] MEDS ORDERED: Sodium Chloride 0.9% 1000 ML 1,000 ML IV SCH (12:45)
[2023-02-01] MEDS ORDERED: Sodium Chloride 0.9% 1000 ML 1,000 ML ONE (12:46)
--- NOTE | 2023-02-01 13:24 | ERPHSYRPT ---
- History of Present Illness Time Seen by Provider: 02/01/23 13:20 Exam Limitations: no limitations Physician History: Patient is an 82-year-old female presents to our ED via EMS for evaluation. EMS reports patient is confused. EMS reports social work visited patient to assess wellness. Social work observed patient was confused and called EMS. Upon EMS arrival they state patient's home was substandard. RN reports patient had bedbugs upon arrival. Patient's daughter is present and states that patient falls frequently. She also states that patient's son lives with patient in her home and is impaired. She states that she is concerned that son may be harming our patient. Patient's baseline confusion is believed to be due to dementia. Patient answers questions appropriately but incompletely. Patient denies pain. No fever. No nausea vomiting or diaphoresis. No diarrhea. Patient voices no other complaints or concerns at this time. Portions of this note were created with voice recognition technology. There may be grammatical, spelling, punctuation or sound alike errors Timing/Duration: today Severity: moderate Modifying Factors: Improves With: nothing Associated Symptoms: denies symptoms Allergies/Adverse Reactions: No Known Drug Allergies Allergy (Verified 02/01/23 14:46) Home Medications: Sodium Chloride [Cortes-128] 2 drops OP QID 12/01/18 [History] fluorouraciL [Fluorouracil] 40 gm TP HS 11/23/20 [History] Ferrous Sulfate 325 mg [Feosol 325 mg] 325 mg PO DAILY 01/10/23 [History] Furosemide 40 mg [Lasix 40 MG] 40 mg PO BID 01/10/23 [History] Metoprolol Succinate 25 mg Xl* [Toprol-Xl 25MG Tablets] 25 mg PO DAILY 01/10/23 [History] Potassium Citrate [Potassium Citrate ER] 1 ea TID 01/10/23 [History] Sertraline HCl 50 mg [Zoloft 50 mg Tablet] 50 mg PO DAILY 01/10/23 [History] Spironolactone [Aldactone] 50 mg PO DAILY 01/10/23 [History] Hx Tetanus, Diphtheria Vaccination/Date Given: No Hx Influenza Vaccination/Date Given: Yes Hx Pneumococcal Vaccination/Date Given: Yes Travel Risk - Vaccine Status Have you recieved a Covid-19 vaccination: Yes [employer] System [employer]: [employer] - Vaccination Dates Date of 2cond Vaccination (if applicable): 09/20/20 - Review of Systems Constitutional: No Symptoms, No Fever, No Chills Eyes: No Symptoms Ears, Nose, & Throat: No Symptoms Respiratory: No Symptoms, No Cough, No Dyspnea Cardiac: No Symptoms, No Chest Pain, No Edema, No Syncope Abdominal/Gastrointestinal: No Symptoms, No Abdominal Pain, No Nausea, No Vomiting, No Diarrhea Genitourinary Symptoms: No Symptoms, No Dysuria Musculoskeletal: No Symptoms, No Back Pain, No Neck Pain Skin: No Symptoms, No Rash Neurological: No Symptoms, No Dizziness, No Focal Weakness, No Sensory Changes Psychological: No Symptoms Endocrine: No Symptoms Hematologic/Lymphatic: No Symptoms Immunological/Allergic: No Symptoms All Other Systems: Reviewed and Negative - Past Medical History Pertinent Past Medical History: Yes Neurological History: Stroke, TIA ENT History: Other Cardiac History: Congestive Heart Failure Respiratory History: No Pertinent History Endocrine Medical History: No Pertinent History Musculoskeletal History: No Pertinent History GI Medical History: No Pertinent History, Other History: No Pertinent History, Renal Disease, Other Psycho-Social History: No Pertinent History Female Reproductive Disorders: No Pertinent History Other Medical History: ANXIETY/DEPRESSION. SX HX: TUBAL LIGATION, APPENDECTOMY. VACCINATED FOR COVID. ANSWERED NO TO ALL COVID SCREENING QUESTIONS. TEMP 97.3 - Past Surgical History Past Surgical History: Yes (cornea transplant) Neuro Surgical History: No Pertinent History Cardiac: No Pertinent History, Cardiac Catheterization Respiratory: No Pertinent History Gastrointestinal: Appendectomy Genitourinary: No Pertinent History Musculoskeletal: No Pertinent History Female Surgical History: Tubal Ligation Other Surgical History: tubal ligation. appendectomy. skin cancers removed right leg - Social History Smoking Status: Never smoker Exposure to second hand smoke: No Drug Use: none Patient Lives Alone: No (but has no help) - Nursing Vital Signs Nursing Vital Signs: Initial Vital Signs Temperature 96.2 F 02/01/23 13:10 Pulse Rate 74 02/01/23 13:10 Respiratory Rate 20 02/01/23 13:10 Blood Pressure 175/96 02/01/23 13:10 O2 Sat by Pulse Oximetry 100 02/01/23 13:10 Pain Scale Pain Intensity 0 - Physical Exam General Appearance: no apparent distress, alert, other (Pleasant elderly woman conversant no acute distress) Eye Exam: PERRL/EOMI, eyes nml inspection Ears, Nose, Throat Exam: normal ENT inspection, pharynx normal, moist mucous membranes Neck Exam: normal inspection, non-tender, supple, full range of motion Respiratory Exam: normal breath sounds, lungs clear, airway intact, No respiratory distress Cardiovascular Exam: regular rate/rhythm, normal heart sounds, normal peripheral pulses Gastrointestinal/Abdomen Exam: soft, normal bowel sounds, No tenderness, No mass Back Exam: normal inspection, normal range of motion, No CVA tenderness, No vertebral tenderness Extremity Exam: normal inspection, normal range of motion, pelvis stable Neurologic Exam: alert, oriented x 3, cooperative, normal mood/affect, sensation nml, No motor deficits Skin Exam: normal color, warm, dry, No rash Lymphatic Exam: No adenopathy SpO2 Interpretation: normal SpO2: 100 O2 Delivery: Room Air - Course Nursing assessment & vital signs reviewed: Yes - CT Exams Head CT Interpretation: Tele-radiologist Report (Nonacute senile brain) Ordered Tests: Active Orders 24 hr Category Date Time Status Crime Scene Analyst STAT Care 02/01/23 12:38 Active IV Insertion STAT Care 02/01/23 12:37 Active Pulse Oximetry (ED) STAT Care 02/01/23 12:37 Active HEAD WITHOUT CONTRAST [CT] Stat Exams 02/01/23 12:39 Completed CBC W DIFF Stat Lab 02/01/23 13:20 Completed CMP Stat Lab 02/01/23 13:20 Completed CULTURE,URINE Stat Lab 02/01/23 13:10 Received UA W/RFX UR CULTURE Stat Lab 02/01/23 13:10 Completed Medication Summary Generic Name Dose Route Start Last Admin Trade Name Belinda PRN Reason Stop Dose Admin Sodium Chloride 1,000 mls @ 100 mls/hr 02/01/23 12:45 02/01/23 15:09 Sodium Chloride 0.9% 1000 Ml IV 03/03/23 12:44 Infused .Q10H NAKITA Infusion Lab/Rad Data: Laboratory Result Diagrams 02/01/23 13:20 02/01/23 13:20 Laboratory Results 02/01/23 02/01/23 02/01/23 Range/Units 13:20 13:20 13:10 WBC 8.4 (4.0-10.5) x10^3/uL RBC 3.97 L (4.1-5.4) x10^6/uL Hgb 11.7 L (12.0-16.0) g/dL Hct 36.3 (35-47) % MCV 91.4 (78-100) fL MCH 29.5 (26-32) pg MCHC 32.2 (32-36) g/dL RDW 13.8 (11.5-14.0) % Plt Count 174 (150-450) x10^3/uL MPV 11.8 H (7.5-11.0) fL Gran % 82.5 H (36.0-66.0) % Immature Gran % (Auto) 0.8 H (0.00-0.4) % Nucleat RBC Rel Count 0.0 (0.00-0.1) % Eos # (Auto) 0.02 (0-0.5) x10^3/uL Immature Gran # (Auto) 0.07 H (0.00-0.03) x10^3u/L Absolute Lymphs (auto) 0.76 L (1.0-4.6) x10^3/uL Absolute Monos (auto) 0.58 (0.0-1.3) x10^3/uL Absolute Nucleated RBC 0.00 (0.00-0.01) x10^3u/L Lymphocytes % 9.1 L (24.0-44.0) % Monocytes % 6.9 (0.0-12.0) % Eosinophils % 0.2 (0.00-5.0) % Basophils % 0.5 (0.0-0.4) % Absolute Granulocytes 6.90 (1.4-6.9) x10^3/uL Basophils # 0.04 (0-0.4) x10^3/uL Sodium 134 L (137-145) mmol/L Potassium 4.1 (3.5-5.1) mmol/L Chloride 93 L (98-107) mmol/L Carbon Dioxide 23 (22-30) mmol/L Anion Gap 22.7 H (5-15) MEQ/L BUN 111 H (7-17) mg/dL Creatinine 4.60 H (0.52-1.04) mg/dL Estimated GFR 9.6 ML/MIN Glucose 99 (74-106) mg/dL Calcium 12.9 H* (8.4-10.2) mg/dL Total Bilirubin 0.90 (0.2-1.3) mg/dL AST 83 H (14-36) U/L ALT 30 (0-35) U/L Alkaline Phosphatase 68 (38-126) U/L Serum Total Protein 9.6 H (6.3-8.2) g/dL Albumin 4.8 (3.5-5.0) g/dL Urine Color Yellow (Yellow) Urine Appearance Clear (Clear) Urine pH 5.0 (4.6-8.0) Ur Specific Dolliver 1.015 (1.005-1.030) Urine Protein 30 (Negative) Urine Glucose (UA) Negative (Negative) mg/dL Urine Ketones Trace A (Negative) Urine Blood Small A (Negative) Urine Nitrite Negative (Negative) Urine Bilirubin Negative (Negative) Urine Urobilinogen 0.2 (0.2) mg/dL Ur Leukocyte Esterase Large A (Negative) U Hyaline Cast (Auto) 0-2 (0-2) /LPF Urine Microscopic RBC 0-2 (0-5) /HPF Urine Microscopic WBC 11-20 A (0-5) /HPF Ur Epithelial Cells Rare (None Seen) /HPF Urine Bacteria Few A (None Seen) /HPF Urine Culture Reflexed YES (NO) - Progress Progress: improved Progress Note: Case discussed with Dr. Lane who accepts transfer at 3:[address] Lane is the ER doctor at [facility] Plan of care discussed with patient. Patient agrees to transfer to [facility] for further evaluation and treatment. 02/01/23 15:55 Patient is a 82-year-old female presents to our ED via EMS for evaluation of confusion. EMS reports patient has a history of dementia. It is unclear whether or not patient's confusion is progression of her dementia or a superimposed delirium. Physical exam reveals a 82-year-old female no acute distress. RN reports patient had "bedbugs". Patient was bathed in our ED by RN. Patient's daughter at bedside advises that patient will need placement. Patient lives alone however she is a danger to herself. Patient is a high risk for falls. Laboratory studies obtained. Test ordered include CBC which was within normal limits. CMP reveals a BUN of 111 and a creatinine of 4.60. Urina lysis reveals a urinary tract infection. Patient received a dose of Rocephin for the urinary tract infection. Blood cultures reflex. Patient received normal saline. CMP also revealed an anion gap acidosis which should be lessened by administration of normal saline. Hypercalcemia observed at 12.9. The etiology is unclear however likely due to renal insufficiency. CT head reveals no acute intracranial process. CT head reveals a nonacute senile brain. Plan of care discussed with patient and family. They agree to transfer to [facility] for further evaluation and treatment. Case discussed with Dr. Carlos queasda ER physician at [facility] who accepted transfer at 3:55 PM. Patient daughter at bedside they voiced no other complaints concerns at this time. Complexity of problem addressed is moderate acute complicated No critical care time Complex of data reviewed and analyzed is extensive. Laboratory studies ordered reviewed and analyzed along with imaging study of head. Findings were clinically correlated. Plan of care established and discussed with Dr. Lane at [facility] who accepts transfer. Risk of complication and or risk for morbidity/mortality of patient management is high. Patient will require hospitalization for further evaluation and jimy tment of acidosis and acute renal injury. There is also a social component of the need for transfer. Patient will require higher level of care. We do not have urology/nephrology services in our hospital available at the moment Plan of care established for shared decision making. Vital stable. No social determinants of health present to impede follow-up. Portions of this note were created with voice recognition technology. There may be grammatical, spelling, punctuation or sound alike errors 02/01/23 16:02 Counseled pt/family regarding: lab results, diagnosis, rad results - Departure Departure Disposition: Home Clinical Impression: Confusion, UTI (urinary tract infection), Hypercalcemia, High anion gap metabolic acidosis, Acute renal injury Condition: Stable Critical Care Time: No Referrals: CRISTÓBAL ABDI MD [Primary Care Provider] - Follow up/PCP as directed
[2023-02-01 13:26] LABS: BASOPHIL % 0.5 % (0.0-0.4); Basophil (Absolute #) 0.04 x10^3/uL (0-0.4); Eosinophil % 0.2 % (0.00-5.0); Eosinophil (Absolute #) 0.02 x10^3/uL (0-0.5); Hematocrit 36.3 % (35-47); Hemoglobin 11.7 g/dL (12.0-16.0); IMMATURE GRAN # 0.07 x10^3u/L (0.00-0.03); IMMATURE GRAN % 0.8 % (0.00-0.4); Lymphocyte (Absolute #) 0.76 x10^3/uL (1.0-4.6); Lymphocytes % 9.1 % (24.0-44.0); Mean Cell Volume 91.4 fL (78-100); Mean Corpuscular Hemoglobin 29.5 pg (26-32); Mean Corpuscular Hgb Concent. 32.2 g/dL (32-36); Mean Platelet Volume 11.8 fL (7.5-11.0); Monocyte (Absolute #) 0.58 x10^3/uL (0.0-1.3); Monocytes % 6.9 % (0.0-12.0); Neutrophil % 82.5 % (36.0-66.0); Platelet Count 174 x10^3/uL (150-450); Red Blood Count 3.97 x10^6/uL (4.1-5.4); Red Cell Distribution Width 13.8 % (11.5-14.0); White Blood Count 8.4 x10^3/uL (4.0-10.5)
[2023-02-01 13:40] LABS: ALBUMIN 4.8 g/dL (3.5-5.0); ANION GAP 22.7 MEQ/L (5-15); BILIRUBIN,TOTAL 0.9 mg/dL (0.2-1.3); Creatinine 1 4.6 mg/dL (0.52-1.04); EST GLOMERULAR FILTRATION RATE 9.6 ML/MIN; Potassium 4.1 mmol/L (3.5-5.1); Total Protein 9.6 g/dL (6.3-8.2)
--- NOTE | 2023-02-01 13:46 | XRAY ---
Indication: Confusion. Multiple contiguous axial images obtained through the head without contrast. Comparison: None Age-appropriate global atrophy and minimal periventricular degenerative micro-ischemia bilaterally. No acute intracranial hemorrhage, abnormal extra-axial fluid collection, or mass effect. Fourth ventricle is midline without hydrocephalus. Chester-white matter differentiation preserved. Bony calvarium intact. Visualized paranasal sinuses and mastoid air cells are clear. Impression: Nonacute senile brain.
[2023-02-01 13:54] LABS: Calcium 12.9 mg/dL (8.4-10.2)
[2023-02-01 14:41] LABS: Appearance Clear (Clear); Bilirubin Negative (Negative); Blood Small (Negative); Epithelial Cells Rare /HPF (None Seen); Glucose, Urine Negative (Negative); Ketones Trace (Negative); Leukocyte Esterase Large (Negative); Nitrite Negative (Negative); Protein,Urine Dip 30 (Negative); RBC 0-2 /HPF (0-5); Specific Gravity 1.015 (1.005-1.030); Urobilinogen 0.2 mg/dL (0.2)
[2023-02-01 14:43] LABS: ADD URINE CULTURE? YES (NO); Bacteria Few /HPF (None Seen); Hyaline Casts 0-2 /LPF (0-2)
[2023-02-01] MEDS ORDERED: ROCEPHIN 1 Gm-D5w 50 ml Bag** 1 G/50 ML IVPB IV STA (15:59)
[2023-02-01 16:01] VITALS: O2SAT 100
[2023-02-01] MEDS ORDERED: ROCEPHIN 1 Gm-D5w 50 ml Bag** 1 G/50 ML IVPB IV ONE (16:01)
[2023-02-01 16:27] VITALS: BP 157/69; PULSE 59
== END 2023-02-01 16:35 | disposition short-term general hospital (02) ==
LOC: ED 12:23
DX: N39.0 Urinary tract infection, site not specified (principal); E83.52 Hypercalcemia; E87.20 Acidosis, unspecified; N17.9 Acute kidney failure, unspecified; R41.0 Disorientation, unspecified; I50.9 Heart failure, unspecified; Z79.899 Other long term (current) drug therapy
CPT/HCPCS: 36000; 36415; 70450; 80053; 81001; 85025; 87086; 93041; 94760; 96360; 96361; 96365; 99285; J0696

== ENCOUNTER 2023-05-22 12:38 | Emergency (ER) | payer MEDICARE ==
[2023-05-22 12:58] VITALS: BP 143/63; PULSE 58; RESP 18; TEMP 97.6; O2SAT 98
--- NOTE | 2023-05-22 13:13 | ERPHSYRPT ---
- History of Present Illness Time Seen by Provider: 05/22/23 13:00 Source: patient Exam Limitations: no limitations Patient Subjective Stated Complaint: Well visit Triage Nursing Assessment: Patient brought into ED per EMS and transferred to bed with assist of 2. Patient A+O X 3. Patient's skin pink, warm and dry. Patient resides at [facility] and was eating lunch when she got a piece of rice stuck in her throat. Patient couldn't get it out. Upon arrival to ED patient states she feels better and nothing is stuck. Lungs clear a/p elyse. Patient gave a glass of water is drinking with no choking noted. Physician History: 83-year-old female presents to our ED as a referral from an [address] [place] [address] facility for evaluation of a rice food bolus stuck in her esophagus. Patient states that she has had this problem in the past. Patient is currently scheduled for a swallow study. Patient was unable to swallow for period of time. However the obstruction resolved. Patient was asymptomatic upon arrival. Patient passed the food bolus. Patient tolerating p.o. Patient states she has no complaints he is currently asymptomatic. Patient requesting discharge daughter at bedside. They voiced no other complaints or concerns at this time. Portions of this note were created with voice recognition technology. There may be grammatical, spelling, punctuation or sound alike errors Timing/Duration: today Severity: moderate Modifying Factors: Improves With: nothing Associated Symptoms: denies symptoms Allergies/Adverse Reactions: No Known Drug Allergies Allergy (Verified 05/22/23 12:42) Home Medications: Sodium Chloride [Cortes-128] 2 drops OP QID 12/01/18 [History] fluorouraciL [Fluorouracil] 40 gm TP HS 11/23/20 [History] Ferrous Sulfate 325 mg [Feosol 325 mg] 325 mg PO DAILY 01/10/23 [History] Furosemide 40 mg [Lasix 40 MG] 40 mg PO BID 01/10/23 [History] Metoprolol Succinate 25 mg Xl* [Toprol-Xl 25MG Tablets] 25 mg PO DAILY 01/10/23 [History] Potassium Citrate [Potassium Citrate ER] 1 ea TID 01/10/23 [History] Sertraline HCl 50 mg [Zoloft 50 mg Tablet] 50 mg PO DAILY 01/10/23 [History] Spironolactone [Aldactone] 50 mg PO DAILY 01/10/23 [History] Hx Tetanus, Diphtheria Vaccination/Date Given: No Hx Influenza Vaccination/Date Given: Yes Hx Pneumococcal Vaccination/Date Given: Yes Travel Risk - International Travel Have you traveled outside of the country in past 3 weeks: No - Coronavirus Screening Are you exhibiting any of the following symptoms?: No Close contact with a COVID-19 positive Pt in past 14-21 Days: No - Vaccine Status Have you recieved a Covid-19 vaccination: Yes [employer]: [employer] - Vaccination Dates Date of 2cond Vaccination (if applicable): 09/20/20 - Review of Systems Constitutional: No Symptoms, No Fever, No Chills Eyes: No Symptoms Ears, Nose, & Throat: No Symptoms Respiratory: No Symptoms, No Cough, No Dyspnea Cardiac: No Symptoms, No Chest Pain, No Edema, No Syncope Abdominal/Gastrointestinal: No Symptoms, No Abdominal Pain, No Nausea, No Vomiting, No Diarrhea Genitourinary Symptoms: No Symptoms, No Dysuria Musculoskeletal: No Symptoms, No Back Pain, No Neck Pain Skin: No Symptoms, No Rash Neurological: No Symptoms, No Dizziness, No Focal Weakness, No Sensory Changes Psychological: No Symptoms Endocrine: No Symptoms Hematologic/Lymphatic: No Symptoms Immunological/Allergic: No Symptoms All Other Systems: Reviewed and Negative - Past Medical History Pertinent Past Medical History: Yes Neurological History: Stroke, TIA ENT History: Other Cardiac History: Congestive Heart Failure Respiratory History: No Pertinent History Endocrine Medical History: No Pertinent History Musculoskeletal History: No Pertinent History GI Medical History: No Pertinent History, Other History: No Pertinent History, Renal Disease, Other Psycho-Social History: No Pertinent History Female Reproductive Disorders: No Pertinent History Other Medical History: ANXIETY/DEPRESSION. SX HX: TUBAL LIGATION, APPENDECTOMY. VACCINATED FOR COVID. ANSWERED NO TO ALL COVID SCREENING QUESTIONS. TEMP 97.3 - Past Surgical History Past Surgical History: Yes (cornea transplant) Neuro Surgical History: No Pertinent History Cardiac: No Pertinent History, Cardiac Catheterization Respiratory: No Pertinent History Gastrointestinal: Appendectomy Genitourinary: No Pertinent History Musculoskeletal: No Pertinent History Female Surgical History: Tubal Ligation Other Surgical History: tubal ligation. appendectomy. skin cancers removed right leg - Social History Smoking Status: Never smoker Exposure to second hand smoke: No Drug Use: none Patient Lives Alone: No (ECF) - Nursing Vital Signs Nursing Vital Signs: Initial Vital Signs Temperature 97.6 F 05/22/23 12:52 Pulse Rate 58 L 05/22/23 12:52 Respiratory Rate 18 05/22/23 12:52 Blood Pressure 143/63 05/22/23 12:52 O2 Sat by Pulse Oximetry 98 05/22/23 12:52 Pain Scale Pain Intensity 0 - Physical Exam General Appearance: no apparent distress, alert Eye Exam: PERRL/EOMI, eyes nml inspection Ears, Nose, Throat Exam: normal ENT inspection, TMs normal, pharynx normal, jamil st mucous membranes Neck Exam: normal inspection, non-tender, supple, full range of motion Respiratory Exam: normal breath sounds, lungs clear, airway intact, No respiratory distress Cardiovascular Exam: regular rate/rhythm, normal heart sounds, normal peripheral pulses Gastrointestinal/Abdomen Exam: soft, normal bowel sounds, No tenderness, No mass Back Exam: normal inspection, normal range of motion, No CVA tenderness, No vertebral tenderness Extremity Exam: normal inspection, normal range of motion, pelvis stable Neurologic Exam: alert, oriented x 3, cooperative, normal mood/affect, sensation nml, No motor deficits Skin Exam: normal color, warm, dry, No rash Lymphatic Exam: No adenopathy SpO2 Interpretation: normal SpO2: 98 O2 Delivery: Room Air - Course Nursing assessment & vital signs reviewed: Yes - Progress Progress: improved Progress Note: Patient is an 83-year-old female presents to our ED for evaluation of an esophageal food bolus. The food bolus passed prior to arrival to our ED. Upon our evaluation patient was asymptomatic. Patient has had similar symptoms in the past. She is currently scheduled for an outpatient swallow study. Patient tolerating p.o. in our ED. No pain. Patient feels well and is requesting discharge. Daughter at bedside. They voiced no other complaints or concerns at this time. Portions of this note were created with voice recognition technology. There may be grammatical, spelling, punctuation or sound alike errors Complexity of problems addressed is low acute uncomplicated No critical care time Complexity of data reviewed and analyzed is none. Diagnosis made based on history and physical examination. No specialized testing ordered. Risk of complication and or risk of morbidity/mortality of patient management is low. We will discharge home. Vital stable.'s time spent to discharge patient is approximately 10 minutes. Plan of care established for shared decision making. No social determinants of health present impede follow-up. Portions of this note were created with voice recognition technology. There may be grammatical, spelling, punctuation or sound alike errors 05/22/23 13:15 Diagnosis is transient food bolus obstruction of esophagus, dysphagia 05/22/23 13:18 Counseled pt/family regarding: diagnosis, need for follow-up - Departure Departure Disposition: Home Clinical Impression: Dysphagia, Transient food bolus obstruction of esop Condition: Stable Critical Care Time: No Referrals: ENVIVE,ENVIVE [Primary Care Provider] - Follow up/PCP as directed Additional Instructions: Discharge/Care Plan OZ BEJARANO was seen on 05/22/23 in the Emergency Room. The patient was counseled regarding Diagnosis,Lab results, Imaging studies, need for follow up and when to return to the Emergency Room. Prescriptions given: Discharge Note I have spoken with the patient and/or caregivers. I have explained the patient's condition, diagnosis and treatment plan based on the information available to me at this time. I have answered the patient's and/or caregiver's questions and addressed any concerns. The patient and/or caregivers have as good understanding of the patient's diagnosis, condition and treatment plan as can be expected at this point. The vital signs have been stable. The patient's condition is stable and appropriate for discharge from the emergency department. The patient will pursue further outpatient evaluation with the primary care physician or other designated or consulting physician as outlined in the discharge instructions. The patient and/or caregivers are agreeable to this plan of care and follow-up instructions have been explained in detail. The patient and/or caregivers have received these instruction. The patient/and or caregivers are aware that any significant change in condition or worsening of symptoms should prompt an immediate return to this or the closest emergency department or call 911.
== END 2023-05-22 13:20 | disposition home or self-care (01) ==
LOC: ED 12:38
DX: R13.10 Dysphagia, unspecified (principal); I50.9 Heart failure, unspecified; Z79.899 Other long term (current) drug therapy
CPT/HCPCS: 99282

== ENCOUNTER 2023-11-26 08:25 | Day surgery (SDC) | payer MEDICARE ==
--- NOTE | 2023-11-26 08:27 | HP ---
DATE OF SURGERY: 11/26/2023 HISTORY OF PRESENT ILLNESS: The patient is an 83-year-old with watery diarrhea with some intermixed constipation for a few days. No recent changes. No bloody stools. Occasional lower abdominal discomfort and now pain lower abdomen. Family history of colon cancer. Last colonoscopy seven or [address] scan showed thickening of the sigmoid. Problems with controlling gas in the rectum when she talks. PAST MEDICAL HISTORY: Anemia, hypertension, history of constipation and loose stools. Chronic obstructive pulmonary disease. Congestive heart failure. PAST SURGICAL HISTORY: Cardiac cath. Appendectomy. Tubal. Benign tumors removed from her legs. MEDICATIONS: Zyrtec, Plavix, Myrbetriq, metoprolol, loperamide, furosemide, ferrous sulfate, cyanocobalamin, calcium with vitamin D3, albuterol sulfate, acetaminophen. ALLERGIES: NKDA. FAMILY HISTORY: Diabetes, lung cancer. Sister had colon cancer. SOCIAL HISTORY: No smoking or alcohol abuse. REVIEW OF SYSTEMS: Twelve systems reviewed. No chest pain or palpitations. Other systems negative or noncontributory as above and per preadmission questionnaire. PHYSICAL EXAMINATION: Height 5 foot. BMI 25.5. GENERAL: No acute distress. HEENT: Sclerae nonicteric. EOMI. Oral mucous membranes moist. NECK: No JVD. CHEST: Equal excursion, nonlabored breathing. CVS: Regular rate and rhythm. ABDOMEN: Soft. No peritoneal signs. EXTREMITIES: No edema. NEURO: Alert, oriented, moving extremities symmetrically. RECTAL: Deferred timed to endoscopy exam. PSYCH: Appropriate mood and affect. SKIN: Dry. IMPRESSION: Minimal thickening of sigmoid on CT scan. The patient is in need of colonoscopy. Risks including but not limited to bleeding or infection, risk of bowel injury or perforation possibly requiring further procedure, risk of missed or nondiagnosis or incomplete exam, possibly requiring barium enema, possible missed or nondiagnosis possible need for other procedures or referral. Risk of anesthesia or sedation, risk of bowel prep but not limited to. Will proceed with outpatient colonoscopy under MAC anesthesia. Otherwise, continue medication for hypertension, chronic obstructive pulmonary disease and heart disease.
[2023-11-26] MEDS ORDERED: Lactated Ringers 1,000 ML IV ONE (08:37)
[2023-11-26] MEDS: Lactated Ringers 1,000 ML IV SCH (08:41)
[2023-11-26 09:03] VITALS: RESP 16; TEMP 97.5
[2023-11-26 09:19] LABS: Absolute Neutrophil Ct (ANC) 3.84 x10^3/uL (1.4-6.9); BASOPHIL % 0.6 % (0.0-0.4); Basophil (Absolute #) 0.03 x10^3/uL (0-0.4); Eosinophil % 0.9 % (0.00-5.0); Eosinophil (Absolute #) 0.05 x10^3/uL (0-0.5); Hematocrit 33.7 % (35-47); Hemoglobin 10.6 g/dL (12.0-16.0); IMMATURE GRAN # 0.02 x10^3u/L (0.00-0.03); IMMATURE GRAN % 0.4 % (0.00-0.4); Lymphocyte (Absolute #) 0.92 x10^3/uL (1.0-4.6); Lymphocytes % 17.2 % (24.0-44.0); Mean Cell Volume 94.4 fL (78-100); Mean Corpuscular Hemoglobin 29.7 pg (26-32); Mean Corpuscular Hgb Concent. 31.5 g/dL (32-36); Mean Platelet Volume 11.4 fL (7.5-11.0); Monocytes % 9.3 % (0.0-12.0); Neutrophil % 71.6 % (36.0-66.0); Platelet Count 144 x10^3/uL (150-450); Red Blood Count 3.57 x10^6/uL (4.1-5.4); Red Cell Distribution Width 13.2 % (11.5-14.0); White Blood Count 5.4 x10^3/uL (4.0-10.5)
[2023-11-26 09:28] LABS: ANION GAP 18.1 MEQ/L (5-15); Calcium 10.1 mg/dL (8.4-10.2); Creatinine 1 1.81 mg/dL (0.52-1.04); EST GLOMERULAR FILTRATION RATE 27.1 ML/MIN; Potassium 4.2 mmol/L (3.5-5.1)
[2023-11-26] MEDS ORDERED: DIPRIVAN 200 MG/20 ML IV ONE (10:39)
[2023-11-26] MEDS ORDERED: Xylocaine-Mpf 2% 5 Ml Vial ONE (10:39)
[2023-11-26] MEDS ORDERED: Amidate 20 MG/10 ML IV ONE (10:40)
[2023-11-26 12:00] VITALS: BP 137/64; PULSE 71; O2SAT 93
--- NOTE | 2023-11-26 13:25 | OP ---
SURGERY DATE/TIME: 11/26/2023 1045 PREOPERATIVE DIAGNOSIS: History of some abnormal thickening sigmoid colon on CT scan. POSTOPERATIVE DIAGNOSES: 1) Friable colon with some erythema. 2) Pancolonic diverticulosis. 3) ASA Class II. 4) Good bowel prep. 5) Withdrawal time approximately nine minutes. PROCEDURES: 1) Colonoscopy to cecum with random cold biopsies right colon to evaluate for microscopic colitis. 2) Random cold biopsies sigmoid colon. SURGEON: Dr. Frankie Brandt M.D. ANESTHESIA: MAC. QUANTITATIVE BLOOD LOSS: Minimal. INDICATIONS: As noted above. Risks and benefits explained in detail but not limited to and consent obtained. DESCRIPTION OF PROCEDURE AND FINDINGS: The patient is taken to the endoscopy room. MAC anesthesia induced. After official time out and no disagreement with planned procedure, digital rectal exam did not reveal any rectal masses. Video colonoscope inserted and passed up through the tortuous sigmoid, descending, transverse and ascending colon around to the sigmoid colon. Appendiceal orifice and valve well visualized and photo documented. Prep overall was good. She did have pancolonic diverticulosis. She did have a little petechial hemorrhages whether from the prep or from insufflation of the colon. A real sensitive friable colon. There is no evidence of any thickening of the mucosa. Some random cold biopsies were taken to evaluate for microscopic colitis. Good hemostasis noted. Again, she had pancolonic mild diverticulosis. Scope pulled back over around to the sigmoid colon and had several diverticula. There was no mitchel evidence of any large polyps, masses or obstructing lesions. The scope is withdrawn. Cold biopsy is then taken random in the sigmoid colon of the mucosa itself. Several diverticula did not appear to have any obvious lesions. The patient tolerated the procedure well. There were no immediate complications.
== END 2023-11-26 12:43 ==
LOC: SDC 08:25
PROVIDERS: ATTEND Surgery
DX: K57.30 Diverticulosis of large intestine without perforation or abscess without bleeding (principal); R93.3 Abnormal findings on diagnostic imaging of other parts of digestive tract; Z80.0 Family history of malignant neoplasm of digestive organs; I10 Essential (primary) hypertension; K63.89 Other specified diseases of intestine; R23.3 Spontaneous ecchymoses
CPT/HCPCS: 36415; 80048; 85025; 93005; 99100; J2704

== ENCOUNTER 2024-01-28 09:28 | Emergency (ER) | payer MEDICARE ==
--- NOTE | 2024-01-28 09:41 | ERPHSYRPT ---
- History of Present Illness Time Seen by Provider: 01/28/24 09:40 Source: patient Exam Limitations: no limitations Physician History: The patient BIBA from longterm for hypotension, she has a history of chronic bowel issues and visual impairment, presents with sudden onset of bilateral lower extremity weakness and altered mental status. She describes the weakness a s originating from the knees down, with no associated pain. The weakness was severe enough to cause concern for falling, but she was able to ambulate slowly without incident. Concurrently, she experienced an unusual sensation in the top of her head and behind her eyes, described as a mild dizziness. She denies headache, facial drooping, speech changes, and swallowing difficulties. The patient also reports an urgent bowel movement, which was difficult to control, resulting in a mess. She describes the stool as normal, not loose or diarrheal. She denies dysuria but admits to frequent urination. She denies recent illness or known changes to her medication regimen. Timing/Duration: today Severity: mild Associated Symptoms: headaches, weakness, No nausea, No vomiting, No abdominal pain, No shortness of breath, No heartburn, No diaphoresis, No cough, No chills, No chest pain, No fever, No loss of appetite, No malaise, No syncope Allergies/Adverse Reactions: No Known Drug Allergies Allergy (Verified 01/28/24 09:32) Home Medications: Ferrous Sulfate 325 mg [Feosol 325 mg] 325 mg PO DAILY 01/10/23 [History] Furosemide 40 mg [Lasix 40 MG] 20 mg PO UD 01/10/23 [History] Metoprolol Succinate 25 mg Xl* [Toprol-Xl 25MG Tablets] 12.5 mg PO HS 0 01/10/23 [History] Acetaminophen 325 mg [Tylenol 325 mg] 650 mg PO Q4H PRN PRN 11/15/23 [History] Albuterol Sulfate [Proair Respiclick] 2 puffs PO Q4H PRN PRN 11/15/23 [History] Calcium Carbonate/Vitamin D3 [Calcium 600-Vit D3 200 Tablet] 1 tab PO DAILY 11/15/23 [History] Cetirizine HCl [Zyrtec] 10 mg PO DAILY 11/15/23 [History] Clopidogrel Bisulfate [PLAVIX Tablet] 75 mg PO UD 11/15/23 [History] Cyanocobalamin (Vitamin B-12) [Vitamin B-12] 10,000 mcg SL UD 11/15/23 [History] Loperamide HCl 2 mg [Imodium 2 mg] 2 mg PO Q6H PRN PRN 11/15/23 [History] Mirabegron [Myrbetriq] 25 mg PO UD 11/15/23 [History] Bisacodyl 10 mg [Dulcolax 10 MG SUPP] [address] DAILY PRN PRN 11/26/23 [Hi story] Calcium Carbonate [Calcium] 600 mg PO DAILY 11/26/23 [History] Dextran 70/Hypromellose/Pf [Genteal Tears 0.1%-0.3% Drop] 1 drop OP TID 11/26/23 [History] Magnesium Hydroxide 30 ml [Milk of Magnesia 30 ml] 30 ml PO DAILY PRN PRN 11/26/23 [History] Methylcellulose [Citrucel] 1 tab PO DAILY 11/26/23 [History] Methylcellulose [Fiber] 500 mg PO BID 11/26/23 [History] Mirabegron [Myrbetriq] 25 mg PO DAILY 11/26/23 [History] Ondansetron [Ondansetron Odt ] 4 mg PO Q6H PRN PRN 11/26/23 [History] Sodium Chloride [Cortes-128] 1 drop OP TID 11/26/23 [History] Hx Tetanus, Diphtheria Vaccination/Date Given: No Hx Influenza Vaccination/Date Given: Yes Hx Pneumococcal Vaccination/Date Given: Yes Travel Risk - Emerging Infectious Disease Are you exhibiting symptoms associated with any current EIDs: No - Review of Systems All Other Systems: Reviewed and Negative - Past Medical History Pertinent Past Medical History: Yes Neurological History: Stroke, TIA ENT History: Other Cardiac History: Congestive Heart Failure, Hypertension Respiratory History: No Pertinent History Endocrine Medical History: No Pertinent History Musculoskeletal History: Arthritis GI Medical History: Other History: Renal Disease, Other Psycho-Social History: Anxiety, Depression Female Reproductive Disorders: No Pertinent History Other Medical History: abnormal bowel movements, abdominal pain - sees GI specialist. tracy lee (right eye). ANXIETY/DEPRESSION. SX HX: TUBAL LIGATION, APPENDECTOMY. VACCINATED FOR COVID. ANSWERED NO TO ALL COVID SCREENING QUESTIONS. TEMP 97.3 - Past Surgical History Past Surgical History: Yes (cornea transplant) Neuro Surgical History: No Pertinent History Cardiac: No Pertinent History, Cardiac Catheterization Respiratory: No Pertinent History Gastrointestinal: Appendectomy Genitourinary: No Pertinent History Musculoskeletal: No Pertinent History Female Surgical History: Tubal Ligation Other Surgical History: tubal ligation. appendectomy. skin cancers removed right leg - Social History Smoking Status: Never smoker Exposure to second hand smoke: No Drug Use: none Patient Lives Alone: No (ECF) - Nursing Vital Signs Nursing Vital Signs: Initial Vital Signs Temperature 96.8 F 01/28/24 09:33 Pulse Rate 53 L 01/28/24 09:33 Respiratory Rate 20 01/28/24 09:33 Blood Pressure 118/58 01/28/24 09:33 O2 Sat by Pulse Oximetry 99 01/28/24 09:33 Pain Scale Pain Intensity 0 - Physical Exam General Appearance: no apparent distress, thin Eye Exam: PERRL/EOMI, other (right eye cataract) Ears, Nose, Throat Exam: normal ENT inspection Neck Exam: normal inspection, supple, full range of motion Respiratory Exam: normal breath sounds, lungs clear, airway intact, No chest tenderness, No respiratory distress Cardiovascular Exam: normal heart sounds, bradycardia, capillary refill <2 sec, edema (trace bilateral LE) Gastrointestinal/Abdomen Exam: soft, tenderness (mild suprapubic), distention, No mass, No guarding, No rebound Back Exam: normal inspection, normal range of motion, No CVA tenderness Extremity Exam: normal inspection, tenderness (bilateral LE) Neurologic Exam: alert, oriented x 3, cooperative, 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 tested, normal mood/affect, sensation nml, No motor deficits, No disoriented, No confusion, No agitation, No motor weakness, No facial droop, No slurred speech, No dysarthria Skin Exam: warm, dry, pale SpO2 Interpretation: normal O2 Delivery: Room Air - Course Nursing assessment & vital signs reviewed: Yes EKG Interpreted by Me: RATE (52), Sinus Diego, NORMAL AXIS, NORMAL INTERVALS, NORMAL QRS, NORMAL ST-T - CT Exams Head CT Interpretation: Negative, Tele-radiologist Report Ordered Tests: Active Orders 24 hr Category Date Time Status Cognos Lead STAT Care 01/28/24 09:42 Active EKG-ER Only STAT Care 01/28/24 09:41 Active IV Insertion STAT Care 01/28/24 09:42 Active Pulse Oximetry (ED) STAT Care 01/28/24 09:42 Active HEAD WITHOUT CONTRAST [CT] Stat Exams 01/28/24 09:44 Completed BLOOD CULTURE Stat Lab 01/28/24 10:05 Received BLOOD CULTURE Stat Lab 01/28/24 10:22 Received CBC W DIFF Stat Lab 01/28/24 10:05 Completed CK-Creatinine Phosphokinase Stat Lab 01/28/24 10:05 Completed CMP Stat Lab 01/28/24 10:05 Completed CULTURE,URINE Stat Lab 01/28/24 09:58 Received LIPID PROFILE Stat Lab 01/28/24 10:05 Completed Lactic Acid Stat Lab 01/28/24 10:05 Completed NT PRO BNPII Stat Lab 01/28/24 10:05 Completed TSH, 3RD Generation Stat Lab 01/28/24 10:05 Completed UA W/RFX UR CULTURE Stat Lab 01/28/24 09:58 Completed Medication Summary Discontinued Medications Generic Name Dose Route Start Last Admin Trade Name Freq PRN Reason Stop Dose Admin Ceftriaxone Sodium 1 gm in 100 mls @ 200 mls/hr 01/28/24 11:00 01/28/24 11:55 Rocephin 1 Gm / 100 Ml Nacl IV 01/28/24 11:29 Infused STAT ONE Infusion Ceftriaxone Sodium Confirm 01/28/24 11:12 Rocephin 1 Gm / 100 Ml Nacl Administered 01/28/24 11:13 Dose 1 gm in 100 mls @ ud IV .STK-MED ONE Sodium Chloride 1,000 mls @ 999 mls/hr 01/28/24 11:25 01/28/24 12:41 Sodium Chloride 0.9% 1000 Ml IV 01/28/24 12:25 Infused .Q1H1M STA Infusion Sodium Chloride Confirm 01/28/24 11:35 Sodium Chloride 0.9% 1000 Ml Administered 01/28/24 11:36 Dose 1,000 mls @ ud .ROUTE .STK-MED ONE Lab/Rad Data: Laboratory Result Diagrams 01/28/24 10:05 01/28/24 10:05 Laboratory Results 01/28/24 01/28/24 01/28/24 Range/Units 10:05 10:05 10:05 WBC (3.98-10.04) x10^3/uL RBC (3.93-5.22) x10^6/uL Hgb (11.2-15.7) g/dL Hct (34.1-44.9) % MCV (79.4-94.8) fL MCH (25.6-32.2) pg MCHC (32.2-35.5) g/dL RDW (11.7-14.4) % Plt Count (182-369) x10^3/uL MPV (9.4-12.3) fL Gran % (34.0-71.1) % Immature Gran % (Auto) (0.001-0.429) % Nucleat RBC Rel Count (0.00-0.2) % Eos # (Auto) (0.04-0.36) x10^3/uL Immature Gran # (Auto) (0.001-0.031) x10^3u/L Absolute Lymphs (auto) (1.18-3.74) x10^3/uL Absolute Monos (auto) (0.24-0.86) x10^3/uL Absolute Nucleated RBC (0.00-0.012) x10^3u/L Lymphocytes % (19.3-51.7) % Monocytes % (4.7-12.5) % Eosinophils % (0.7-5.8) % Basophils % (0.1-1.2) % Absolute Granulocytes (1.56-6.13) x10^3/uL Basophils # (0.01-0.08) x10^3/uL Sodium 143 (135-145) mmol/L Potassium 4.4 (3.5-5.1) mmol/L Chloride 107 (98-107) mmol/L Carbon Dioxide 29 (22-30) mmol/L Anion Gap 11.9 (5-15) MEQ/L BUN 26 H (7-17) mg/dL Creatinine 1.51 H (0.52-1.04) mg/dL Estimated GFR 33.7 ML/MIN Glucose 98 (74-106) mg/dL Hemoglobin A1c 5.48 (4.5-6.0) % Lactic Acid 1.1 (0.4-2.0) Calcium 9.6 (8.4-10.2) mg/dL Total Bilirubin 0.40 (0.2-1.3) mg/dL AST 28 (14-36) U/L ALT 15 (0-35) U/L Alkaline Phosphatase 60 (38-126) U/L Creatine Kinase 76 (30-135) U/L NT-Pro-B Natriuret Pep 1510 (<300) pg/mL Serum Total Protein 7.0 (6.3-8.2) g/dL Albumin 3.8 (3.5-5.0) g/dL Triglycerides 68 (30-150) mg/dL Cholesterol 182 (50-200) mg/dL LDL Cholesterol 81 (30-100) mg/dL HDL Cholesterol 67 H (40-60) mg/dL Heart Disease Risk Ratio 3.0 TSH 3rd Generation 2.734 (0.470-4.680) mIU/L Urine Color (Yellow) Urine Appearance (Clear) Urine pH (4.6-8.0) Ur Specific [place] (1.005-1.030) Urine Protein (Negative) Urine Glucose (UA) (Negative) mg/dL Urine Ketones (Negative) Urine Blood (Negative) Urine Nitrite (Negative) Urine Bilirubin (Negative) Urine Urobilinogen (0.2) mg/dL Ur Leukocyte Esterase (Negative) U Hyaline Cast (Auto) (0-2) /LPF Urine Microscopic RBC (0-5) /HPF Urine Microscopic WBC (0-5) /HPF Ur Epithelial Cells (None Seen) /HPF Urine Bacteria (None Seen) /HPF Urine Culture Reflexed (NO) 01/28/24 01/28/24 Range/Units 10:05 09:58 WBC 5.5 (3.98-10.04) x10^3/uL RBC 3.52 L (3.93-5.22) x10^6/uL Hgb 10.5 L (11.2-15.7) g/dL Hct 33.3 L (34.1-44.9) % MCV 94.6 (79.4-94.8) fL MCH 29.8 (25.6-32.2) pg MCHC 31.5 L (32.2-35.5) g/dL RDW 13.3 (11.7-14.4) % Plt Count 128 L (182-369) x10^3/uL MPV 12.2 (9.4-12.3) fL Gran % 67.4 (34.0-71.1) % Immature Gran % (Auto) 0.4 (0.001-0.429) % Nucleat RBC Rel Count 0.0 (0.00-0.2) % Eos # (Auto) 0.24 (0.04-0.36) x10^3/uL Immature Gran # (Auto) 0.02 (0.001-0.031) x10^3u/L Absolute Lymphs (auto) 0.95 L (1.18-3.74) x10^3/uL Absolute Monos (auto) 0.55 (0.24-0.86) x10^3/uL Absolute Nucleated RBC 0.00 (0.00-0.012) x10^3u/L Lymphocytes % 17.3 L (19.3-51.7) % Monocytes % 10.0 (4.7-12.5) % Eosinophils % 4.4 (0.7-5.8) % Basophils % 0.5 (0.1-1.2) % Absolute Granulocytes 3.69 (1.56-6.13) x10^3/uL Basophils # 0.03 (0.01-0.08) x10^3/uL Sodium (135-145) mmol/L Potassium (3.5-5.1) mmol/L Chloride (98-107) mmol/L Carbon Dioxide (22-30) mmol/L Anion Gap (5-15) MEQ/L BUN (7-17) mg/dL Creatinine (0.52-1.04) mg/dL Estimated GFR ML/MIN Glucose (74-106) mg/dL Hemoglobin A1c (4.5-6.0) % Lactic Acid (0.4-2.0) Calcium (8.4-10.2) mg/dL Total Bilirubin (0.2-1.3) mg/dL AST (14-36) U/L ALT (0-35) U/L Alkaline Phosphatase (38-126) U/L Creatine Kinase (30-135) U/L NT-Pro-B Natriuret Pep (<300) pg/mL Serum Total Protein (6.3-8.2) g/dL Albumin (3.5-5.0) g/dL Triglycerides (30-150) mg/dL Cholesterol (50-200) mg/dL LDL Cholesterol (30-100) mg/dL HDL Cholesterol (40-60) mg/dL Heart Disease Risk Ratio TSH 3rd Generation (0.470-4.680) mIU/L Urine Color Dark Yellow A (Yellow) Urine Appearance Clear (Clear) Urine pH 7.5 (4.6-8.0) Ur Specific [place] 1.020 (1.005-1.030) Urine Protein 30 (Negative) Urine Glucose (UA) Negative (Negative) mg/dL Urine Ketones Trace A (Negative) Urine Blood Negative (Negative) Urine Nitrite Negative (Negative) Urine Bilirubin Negative (Negative) Urine Urobilinogen 1.0 A (0.2) mg/dL Ur Leukocyte Esterase Small A (Negative) U Hyaline Cast (Auto) 20-50 (0-2) /LPF Urine Microscopic RBC 3-5 (0-5) /HPF Urine Microscopic WBC 6-10 A (0-5) /HPF Ur Epithelial Cells Rare (None Seen) /HPF Urine Bacteria Moderate A (None Seen) /HPF Urine Culture Reflexed YES (NO) - Progress Progress: improved Progress Note: 01/28/24 10:03 Will proceed with laboratory evaluation and CT scan of the head to rule out acute pathology. EKG shows sinus bradycardia at 52 bpm. Orthostatics negative. 01/28/24 12:53 Patient was found to have a urinary tract infection and was given [address] scan of the head was negative for acute findings. Kidney fun ction stable compared to her baseline. Recommend completion of antibiotics after discharge and follow-up with her primary care physician. I did discuss that some physical therapy may be beneficial to her to improve her weakness. Counseled pt/family regarding: lab results, diagnosis, need for follow-up, rad results Medical Desision Making - Diagnostic Testing Diagnostic test were ordered, analyzed, and reviewed by me: Yes Radiological Interpretation: Interpreted by me - Risk of complications The pt has a mod risk of morbidity or mortality based on: Need for prescription drug management - Departure Departure Disposition: Extended Care Facility Clinical Impression: Dehydration, Anemia, UTI (urinary tract infection), Weakness, CKD (chronic kidney disease) Condition: Good Critical Care Time: No Referrals: ENVIVE,ENVIVE [Primary Care Provider] - Follow up/PCP as directed Instructions: Urinary tract infections in adults Prescriptions: Cephalexin Mh 500 mg [Keflex 500 mg] 500 mg PO TID 7 Days #21 cap
[2024-01-28 09:45] VITALS: TEMP 96.8
[2024-01-28 10:30] LABS: Absolute Neutrophil Ct (ANC) 3.69 x10^3/uL (1.56-6.13); BASOPHIL % 0.5 % (0.1-1.2); Basophil (Absolute #) 0.03 x10^3/uL (0.01-0.08); Eosinophil % 4.4 % (0.7-5.8); Eosinophil (Absolute #) 0.24 x10^3/uL (0.04-0.36); Hematocrit 33.3 % (34.1-44.9); Hemoglobin 10.5 g/dL (11.2-15.7); IMMATURE GRAN # 0.02 x10^3u/L (0.001-0.031); IMMATURE GRAN % 0.4 % (0.001-0.429); Lymphocyte (Absolute #) 0.95 x10^3/uL (1.18-3.74); Lymphocytes % 17.3 % (19.3-51.7); Mean Cell Volume 94.6 fL (79.4-94.8); Mean Corpuscular Hemoglobin 29.8 pg (25.6-32.2); Mean Corpuscular Hgb Concent. 31.5 g/dL (32.2-35.5); Mean Platelet Volume 12.2 fL (9.4-12.3); Monocyte (Absolute #) 0.55 x10^3/uL (0.24-0.86); Neutrophil % 67.4 % (34.0-71.1); Platelet Count 128 x10^3/uL (182-369); Red Blood Count 3.52 x10^6/uL (3.93-5.22); Red Cell Distribution Width 13.3 % (11.7-14.4); White Blood Count 5.5 x10^3/uL (3.98-10.04)
[2024-01-28 10:38] LABS: Appearance Clear (Clear); Bacteria Moderate /HPF (None Seen); Bilirubin Negative (Negative); Blood Negative (Negative); Epithelial Cells Rare /HPF (None Seen); Glucose, Urine Negative (Negative); Ketones Trace (Negative); Leukocyte Esterase Small (Negative); Nitrite Negative (Negative); Ph 7.5 (4.6-8.0); Protein,Urine Dip 30 (Negative)
[2024-01-28 10:51] LABS: ADD URINE CULTURE? YES (NO); Hyaline Casts 20-50 /LPF (0-2)
--- NOTE | 2024-01-28 10:56 | XRAY ---
Indication: Headache, dizziness, confusion. No known injury. Multiple contiguous axial images obtained through the head without contrast. Comparison: February 01, 2023 Again age-appropriate global atrophy and minimal periventricular degenerative micro-ischemia bilaterally. No acute intracranial hemorrhage, abnormal extra-axial fluid collection, mass effect. Fourth ventricle is midline without hydrocephalus. Bony calvarium intact. Visualized paranasal sinuses and mastoid air cells are clear. Impression: Continued nonacute senile brain.
[2024-01-28] MEDS ORDERED: ROCEPHIN 1 GM / 100 ML NaCl 1 GM/100 ML IVPB IV ONE (11:12)
[2024-01-28 11:16] LABS: ALBUMIN 3.8 g/dL (3.5-5.0); ANION GAP 11.9 MEQ/L (5-15); BILIRUBIN,TOTAL 0.4 mg/dL (0.2-1.3); Calcium 9.6 mg/dL (8.4-10.2); Creatinine 1 1.51 mg/dL (0.52-1.04); EST GLOMERULAR FILTRATION RATE 33.7 ML/MIN; Potassium 4.4 mmol/L (3.5-5.1); TSH, 3RD Generation 2.734 mIU/L (0.470-4.680)
[2024-01-28] MEDS: ROCEPHIN 1 GM / 100 ML NaCl 1 GM/100 ML IVPB IV ONE (11:18)
[2024-01-28] MEDS ORDERED: Sodium Chloride 0.9% 1000 ML 1,000 ML ONE (11:35)
[2024-01-28] MEDS: Sodium Chloride 0.9% 1000 ML 1,000 ML IV STA (11:36)
[2024-01-28 12:12] VITALS: BP 115/50; PULSE 50; RESP 18; O2SAT 100
== END 2024-01-28 13:47 | disposition home or self-care (01) ==
LOC: ED 09:28
DX: E86.0 Dehydration (principal); D64.9 Anemia, unspecified; N39.0 Urinary tract infection, site not specified; R53.1 Weakness; I13.0 Hypertensive heart and chronic kidney disease with heart failure and stage 1 through stage 4 chronic kidney disease, or unspecified chronic kidney disease; N18.9 Chronic kidney disease, unspecified; I50.9 Heart failure, unspecified; Z79.02 Long term (current) use of antithrombotics/antiplatelets; Z79.899 Other long term (current) drug therapy
CPT/HCPCS: 36415; 70450; 80053; 80061; 81001; 82550; 83036; 83605; 83721; 83880; 84443; 85025; 87040; 87086; 93005; 93041; 94760; 96360; 96365; 99284; J0696

== ENCOUNTER 2025-06-13 16:56 | Emergency (ER) | payer MEDICARE, OTHER ==
[2025-06-13 17:20] VITALS: PULSE 61; TEMP 97.9; O2SAT 95
[2025-06-13 17:39] LABS: Glucose, Urine >=1000 mg/dL (Negative); Protein,Urine Dip Negative (Negative); RBC 0-2 /HPF (0-5)
--- NOTE | 2025-06-13 18:03 | ERPHSYRPT ---
- History of Present Illness Time Seen by Provider: 06/13/25 17:12 Source: patient Exam Limitations: no limitations Patient Subjective Stated Complaint: Well adult check Triage Nursing Assessment: [id number] Physician History: 85-year-old female presents to the emergency room with her daughter at bedside from the assisted for concern for UTI patient has been having intermittent sensorium changes denies any fevers or chills denies any chest pain or shortness of breath denies any nausea vomit diarrhea denies abdominal pain patient ambulates with a walker Timing/Duration: today Severity: mild Associated Symptoms: denies symptoms Allergies/Adverse Reactions: No Known Drug Allergies Allergy (Verified 05/09/24 14:06) Home Medications: Ferrous Sulfate 325 mg [Feosol 325 mg] 325 mg PO DAILY 01/10/23 [History] Furosemide 40 mg [Lasix 40 MG] 20 mg PO UD 01/10/23 [History] Metoprolol Succinate 25 mg Xl* [Toprol-Xl 25MG Tablets] 12.5 mg PO HS 01/10/23 [History] Acetaminophen 325 mg [Tylenol 325 mg] 650 mg PO Q4H PRN PRN 11/15/23 [History] Albuterol Sulfate [Proair Respiclick] 2 puffs PO Q4H PRN PRN 11/15/23 [History] Calcium Carbonate/Vitamin D3 [Calcium 600-Vit D3 200 Tablet] 1 tab PO DAILY 11/15/23 [History] Cetirizine HCl [Zyrtec] 10 mg PO DAILY 11/15/23 [History] Clopidogrel Bisulfate [PLAVIX Tablet] 75 mg PO UD 11/15/23 [History] Cyanocobalamin (Vitamin B-12) [Vitamin B-12] 10,000 mcg SL UD 11/15/23 [History] Loperamide HCl 2 mg [Imodium 2 mg] 2 mg PO Q6H PRN PRN 11/15/23 [History] Mirabegron [Myrbetriq] 25 mg PO UD 11/15/23 [History] Bisacodyl 10 mg [Dulcolax 10 MG SUPP] 1 unit UT DAILY PRN PRN 11/26/23 [History] Calcium Carbonate [Calcium] 600 mg PO DAILY 11/26/23 [History] Dextran 70/Hypromellose/Pf [Genteal Tears 0.1%-0.3% Drop] 1 drop OP TID 11/26/23 [History] Magnesium Hydroxide 30 ml [Milk of Magnesia 30 ml] 30 ml PO DAILY PRN PRN 11/26/23 [History] Methylcellulose [Citrucel] 1 tab PO DAILY 11/26/23 [History] Methylcellulose [Fiber] 500 mg PO BID 11/26/23 [History] Mirabegron [Myrbetriq] 25 mg PO DAILY 11/26/23 [History] Ondansetron [Ondansetron Odt ] 4 mg PO Q6H PRN PRN 11/26/23 [History] Sodium Chloride [Cortes-128] 1 drop OP TID 11/26/23 [History] Hx Tetanus, Diphtheria Vaccination/Date Given: No Hx Influenza Vaccination/Date Given: No Hx Pneumococcal Vaccination/Date Given: No Immunizations Up to Date: Yes Travel Risk - International Travel Have you traveled outside of the country in past 3 weeks: No - Emerging Infectious Disease Are you exhibiting symptoms associated with any current EIDs: No - Review of Systems Constitutional: No Fever, No Chills Eyes: No Symptoms Ears, Nose, & Throat: No Symptoms Respiratory: No Cough, No Dyspnea Cardiac: No Chest Pain, No Edema, No Syncope Abdominal/Gastrointestinal: No Abdominal Pain, No Nausea, No Vomiting, No Diarrhea Genitourinary Symptoms: No Dysuria Musculoskeletal: No Back Pain, No Neck Pain Skin: No Rash Neurological: No Dizziness, No Focal Weakness, No Sensory Changes Psychological: No Symptoms Endocrine: No Symptoms All Other Systems: Reviewed and Negative - Past Medical History Pertinent Past Medical History: Yes Neurological History: Stroke, TIA ENT History: Other Cardiac History: Congestive Heart Failure, Hypertension Respiratory History: No Pertinent History Endocrine Medical History: No Pertinent History Musculoskeletal History: Arthritis GI Medical History: Other History: Renal Disease, Other Psycho-Social History: Anxiety, Depression Female Reproductive Disorders: No Pertinent History Other Medical History: abnormal bowel movements, abdominal pain - sees GI specialist. tracy lee (right eye). ANXIETY/DEPRESSION. SX HX: TUBAL LIGATION, APPENDECTOMY. VACCINATED FOR COVID. ANSWERED NO TO ALL COVID SCREENING QUESTIONS. TEMP 97.3 - Past Surgical History Past Surgical History: Yes (cornea transplant) Neuro Surgical History: No Pertinent History Cardiac: No Pertinent History, Cardiac Catheterization Respiratory: No Pertinent History Gastrointestinal: Appendectomy Genitourinary: No Pertinent History Musculoskeletal: No Pertinent History Female Surgical History: Tubal Ligation Other Surgical History: tubal ligation. appendectomy. skin cancers removed right leg - Social History Smoking Status: Never smoker Exposure to second hand smoke: No Drug Use: none - Social Determinants of Health Will the patient participate in the screening: Yes Do you worry about a steady place to live?: No Do you have any problems with any of the following?: No known problems In the past 12 months,have you had to go without utilities?: No Transportation Issues: No Has anyone in your support network made you feel unsafe?: No Have you or anyone in your house had to go w/o enough food: No Comment: Lives in [facility] - Nursing Vital Signs Nursing Vital Signs: Initial Vital Signs Temperature 97.9 F 06/13/25 17:16 Pulse Rate 61 06/13/25 17:16 Respiratory Rate 15 06/13/25 17:16 Blood Pressure 157/81 06/13/25 17:16 O2 Sat by Pulse Oximetry 95 06/13/25 17:16 Pain Scale Pain Intensity 0 - Physical Exam General Appearance: no apparent distress, alert Eye Exam: PERRL/EOMI, eyes nml inspection Ears, Nose, Throat Exam: normal ENT inspection, TMs normal, pharynx normal, moist mucous membranes Neck Exam: normal inspection, non-tender, supple, full range of motion Respiratory Exam: normal breath sounds, lungs clear, No respiratory distress Cardiovascular Exam: regular rate/rhythm, normal heart sounds, normal peripheral pulses Gastrointestinal/Abdomen Exam: soft, normal bowel sounds, No tenderness, No mass Back Exam: normal inspection, normal range of motion, No CVA tenderness, No vertebral tenderness Extremity Exam: normal inspection, normal range of motion, pelvis stable Neurologic Exam: alert, oriented x 3, cooperative, normal mood/affect, nml cerebellar function, nml station & gait, sensation nml, No motor deficits Skin Exam: normal color, warm, dry, No rash Lymphatic Exam: No adenopathy SpO2: 95 Ordered Tests: Active Orders 24 hr Category Date Time Status POCT GLUCOSE Stat Lab 06/13/25 17:13 Completed UA W/RFX UR CULTURE Stat Lab 06/13/25 17:16 Completed Lab/Rad Data: Laboratory Results 06/13/25 06/13/25 Range/Units 17:16 17:13 POC Glucometer 97 (74 to 106) mg/dL Urine Color Yellow (Yellow) Urine Appearance Clear (Clear) Urine pH 6.0 (4.6-8.0) Ur Specific [place] >=1.030 A (1.005-1.030) Urine Protein Negative (Negative) Urine Glucose (UA) >=1000 A (Negative) mg/dL Urine Ketones Negative (Negative) Urine Blood Negative (Negative) Urine Nitrite Negative (Negative) Urine Bilirubin Negative (Negative) Urine Urobilinogen 0.2 (0.2) mg/dL Ur Leukocyte Esterase Trace A (Negative) U Hyaline Cast (Auto) NONE SEEN (0-2) /LPF Urine Microscopic RBC 0-2 (0-5) /HPF Urine Microscopic WBC 6-10 A (0-5) /HPF Ur Epithelial Cells None Seen (None Seen) /HPF Urine Bacteria None Seen (None Seen) /HPF Urine Culture Reflexed NO (NO) - Progress Progress: improved Progress Note: 06/13/25 18:01 Patient has been at baseline recall to the assisted patient's urine is within normal limits culture is not indicated at this time patient be discharged back to the assisted with close return precautions family is aware of the treatment plan and is agreeable assisted is aware - Departure Departure Disposition: Extended Care Facility Clinical Impression: Confusion Condition: Stable Critical Care Time: No Referrals: CRISTÓBAL ABDI MD [Primary Care Provider, [facility]] - Follow up/PCP as directed Instructions: Delirium (confusion)
[2025-06-13 18:11] VITALS: BP 135/71; RESP 13
== END 2025-06-13 18:15 | disposition home or self-care (01) ==
LOC: ED 16:56
DX: R41.0 Disorientation, unspecified (principal); I11.0 Hypertensive heart disease with heart failure; I50.9 Heart failure, unspecified; Z79.02 Long term (current) use of antithrombotics/antiplatelets; Z79.899 Other long term (current) drug therapy